=== PATIENT | male | born 1935 | race Caucasian/White ===

== ENCOUNTER 2021-06-11 09:46 | Inpatient (IN) | payer MEDICARE ==
[2021-06-11] MEDS ORDERED: SODIUM CHLORIDE 0.9% 1,000 ML IV STA (10:20)
--- NOTE | 2021-06-11 10:46 | ED ---
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 Patient had small skin cancer removal on the left side of his bottom lip yesterday. He states he did not eat a whole lot yesterday secondary to this. He woke up this morning, ring some coffee and was having some bread when he became nauseous, he stood up and started going to the bathroom when he felt dizzy, fell towards his left side. He did hit the door sill as well as a small glass cabinet on the floor. He denies any loss of consciousness. He denies being on blood thinners. He states he did have some neck pain after the fall but states that feeling better now. He denies any pain as his lower extrem ities, no abdominal pain, no chest pain or shortness of breath. He does not feel dizzy at this time. He denies any chest pain or shortness of breath at this time. He does have some mild skin tears to the left forearm and left hand. He also has some abrasions to his face. He does have some mild nasal pain. Patient denies any further complaints at this time. Upon arrival to the ER, his blood pressure slightly low at 85/67, rest of vitals within normal limits. - Related Data Home Medications Medication Instructions Recorded Confirmed Cephalexin [Keflex] 500 mg PO QID 06/11/21 06/11/21 Donepezil [Aricept] 5 mg PO HS 06/11/21 06/11/21 Furosemide [Lasix] 20 mg PO DAILY 06/11/21 06/11/21 HYDROcodone/APAP 7.5-325MG [[place] 1 tab PO DAILY PRN 06/11/21 06/11/21 7.5-325] Lisinopril-Hctz 20-25 mg 1 tab PO BID 06/11/21 06/11/21 [Zestoretic 20-25] Omeprazole 40 mg PO DAILY 06/11/21 06/11/21 Repaglinide [Prandin] 1 mg PO BID 06/11/21 06/11/21 Tamsulosin HCl [Flomax] 0.4 mg PO DAILY 06/11/21 06/11/21 Allergies Allergy/AdvReac Type Severity Reaction Status Date / Time No Known Allergies Allergy Verified 06/11/21 09:58 Review of Systems ROS Statement: Those systems with pertinent positive or pertinent negative responses have been documented in the HPI. ROS Other: All systems not noted in ROS Statement are negative. Past Medical History Past Medical History: Cancer, CVA/TIA, Diabetes Mellitus, Hypertension Additional Past Medical History / Comment(s): CVA in 2015 and 2019. occasional confusion per . skin cancer on left side of chin and small spot inside lip- removed 06/10/21 History of Any Multi-Drug Resistant Organisms: None Reported Additional Past Surgical History / Comment(s): skin cancer removal 06/11/21 Past Psychological History: No Psychological Hx Reported Smoking Status: Former smoker Past Alcohol Use History: Rare Past Drug Use History: None Reported General Exam - General Exam Comments Initial Comments: GENERAL: Patient is well-developed and well-nourished. Patient is nontoxic and in no acute distress. HEAD: Atraumatic, normocephalic. He has no hematomas, no signs of basal skull fracture. EYES: Pupils equal round and reactive to light, extraocular movements intact, sclera anicteric, conjunctiva are normal. Eyelids were unremarkable. ENT: TMs normal, nares patent, oropharynx clear without exudates. Moist mucous membranes. There is mild swelling and bruising noted to the nasal bridge, he does have a skin tear to the end of the nose. No active nasal bleeding. NECK: Normal range of motion, supple without lymphadenopathy or JVD. LUNGS: Unlabored respirations. Breath sounds clear to auscultation bilaterally and equal. No wheezes rales or rhonchi. HEART: Regular rate and rhythm without murmurs, rubs or gallops. ABDOMEN: Soft, nontender, normoactive bowel sounds. No guarding, no rebound. No masses appreciated. : Deferred MUSCULOSKELETAL: Normal extremities with adequate strength and normal range of motion, no pitting or edema. No clubbing or cyanosis. NEUROLOGICAL: Patient is alert and oriented x 3. Motor and sensory are also intact. Cranial nerves II through XII grossly intact. Symmetrical smile. Normal speech, normal gait. PSYCH: Normal mood, normal affect. SKIN: Warm, Dry, normal turgor, no rashes. Patient has a large 5x2 cm skin tear to the dorsal aspect of the left forearm, no active bleeding. He also has a very small skin tear, 1cm1cm to the dorsal aspect of the left hand again no active bleeding. Limitations: no limitations Course Vital Signs 06/11/21 06/11/21 06/11/21 09:49 10:33 11:49 Temperature 97.8 F Pulse Rate 92 94 89 Respiratory 18 18 18 Rate Blood Pressure 85/67 85/47 114/73 O2 Sat by Pulse 95 93 L 97 Oximetry 06/11/21 16:00 Temperature 97.7 F Pulse Rate 77 Respiratory 16 Rate Blood Pressure 116/61 O2 Sat by Pulse 97 Oximetry Medical Decision Making - Medical Decision Making She is an 85-year-old male with history of CVA with some mild left-sided weakness residual, diabetes, hypertension, presenting via EMS after a fall this morning. Patient got up to use the restroom, felt dizzy, fell towards the left side. He did not lose consciousness. His vitals are stable here except for some mild hypotension. He has no complaints. He has some small skin tears on the left forearm and on his nasal bridge. His EKG showing sinus rhythm with occ asional PVCs. Patient's labs showed a white count 11.2, creatinine is 3.16, BUN is 69 with GFR 17. Lactic acid is elevated at 5.4, troponin was within normal limits. Urine also has 20 WBCs, urine culture is pending. Patient states he doesn't history of kidney failure but does not know his current lab values. Given patient's elevated lactic acid and creatinine levels, we will admit him for acute kidney injury, dehydration, hypotension. Patient and patient's family is agreeable to this. I did discuss case with Dr. Merchant who is covering for Dr. Caceres, she is agreeable to admission. I will order kidney ultrasound and consult nephrology. Case discussed with Dr. Ontiveros. - Lab Data Result diagrams: 06/11/21 10:31 06/12/21 07:07 Lab Results 06/11/21 06/11/21 06/11/21 Range/Units 10:31 10:31 10:31 WBC 11.2 H (3.8-10.6) k/uL RBC 4.77 (4.30-5.90) m/uL Hgb 14.9 (13.0-17.5) gm/dL Hct 45.4 (39.0-53.0) % MCV 95.1 (80.0-100.0) fL MCH 31.2 (25.0-35.0) pg MCHC 32.8 (31.0-37.0) g/dL RDW 13.6 (11.5-15.5) % Plt Count 239 (150-450) k/uL MPV 8.8 Neutrophils % 75 % Lymphocytes % 15 % Monocytes % 4 % Eosinophils % 3 % Basophils % 1 % Neutrophils # 8.4 H (1.3-7.7) k/uL Lymphocytes # 1.7 (1.0-4.8) k/uL Monocytes # 0.5 (0-1.0) k/uL Eosinophils # 0.3 (0-0.7) k/uL Basophils # 0.1 (0-0.2) k/uL PT 11.5 (9.0-12.0) sec INR 1.1 (<1.2) APTT 21.9 L (22.0-30.0) sec Sodium 138 (137-145) mmol/L Potassium 4.3 (3.5-5.1) mmol/L Chloride 102 (98-107) mmol/L Carbon Dioxide 19 L (22-30) mmol/L Anion Gap 17 mmol/L BUN 69 H (9-20) mg/dL Creatinine 3.16 H (0.66-1.25) mg/dL Est GFR (CKD-EPI)AfAm 19 (>60 ml/min/1.73 sqM) Est GFR (CKD-EPI)NonAf 17 (>60 ml/min/1.73 sqM) Glucose 189 H (74-99) mg/dL Lactic Ac Sepsis Rflx Plasma Lactic Acid Jd (0.7-2.0) mmol/L Calcium 9.5 (8.4-10.2) mg/dL Magnesium 1.9 (1.6-2.3) mg/dL Total Bilirubin 0.9 (0.2-1.3) mg/dL AST 21 (17-59) U/L ALT 11 (4-49) U/L Alkaline Phosphatase 57 (38-126) U/L Troponin I (0.000-0.034) ng/mL Total Protein 7.1 (6.3-8.2) g/dL Albumin 3.6 (3.5-5.0) g/dL Urine Color Urine Appearance (Clear) Urine pH (5.0-8.0) Ur Specific [place] (1.001-1.035) Urine Protein (Negative) Urine Glucose (UA) (Negative) Urine Ketones (Negative) Urine Blood (Negative) Urine Nitrite (Negative) Urine Bilirubin (Negative) Urine Urobilinogen (<2.0) mg/dL Ur Leukocyte Esterase (Negative) Urine RBC (0-5) /hpf Urine WBC (0-5) /hpf Ur Squamous Epith Cells (0-4) /hpf Urine Mucus (None) /hpf Coronavirus (PCR) (Not Detectd) 06/11/21 06/11/21 06/11/21 Range/Units 10:31 10:31 12:09 WBC (3.8-10.6) k/uL RBC (4.30-5.90) m/uL Hgb (13.0-17.5) gm/dL Hct (39.0-53.0) % MCV (80.0-100.0) fL MCH (25.0-35.0) pg MCHC (31.0-37.0) g/dL RDW (11.5-15.5) % Plt Count (150-450) k/uL MPV Neutrophils % % Lymphocytes % % Monocytes % % Eosinophils % % Basophils % % Neutrophils # (1.3-7.7) k/uL Lymphocytes # (1.0-4.8) k/uL Monocytes # (0-1.0) k/uL Eosinophils # (0-0.7) k/uL Basophils # (0-0.2) k/uL PT (9.0-12.0) sec INR (<1.2) APTT (22.0-30.0) sec Sodium (137-145) mmol/L Potassium (3.5-5.1) mmol/L Chloride (98-107) mmol/L Carbon Dioxide (22-30) mmol/L Anion Gap mmol/L BUN (9-20) mg/dL Creatinine (0.66-1.25) mg/dL Est GFR (CKD-EPI)AfAm (>60 ml/min/1.73 sqM) Est GFR (CKD-EPI)NonAf (>60 ml/min/1.73 sqM) Glucose (74-99) mg/dL Lactic Ac Sepsis Rflx Plasma Lactic Acid Jd 5.4 H* (0.7-2.0) mmol/L Calcium (8.4-10.2) mg/dL Magnesium (1.6-2.3) mg/dL Total Bilirubin (0.2-1.3) mg/dL AST (17-59) U/L ALT (4-49) U/L Alkaline Phosphatase (38-126) U/L Troponin I 0.021 (0.000-0.034) ng/mL Total Protein (6.3-8.2) g/dL Albumin (3.5-5.0) g/dL Urine Color Yellow Urine Appearance Cloudy (Clear) Urine pH 5.0 (5.0-8.0) Ur Specific [place] 1.028 (1.001-1.035) Urine Protein 1+ H (Negative) Urine Glucose (UA) Negative (Negative) Urine Ketones Negative (Negative) Urine Blood Negative (Negative) Urine Nitrite Negative (Negative) Urine Bilirubin Negative (Negative) Urine Urobilinogen 4.0 (<2.0) mg/dL Ur Leukocyte Esterase Negative (Negative) Urine RBC 6 H (0-5) /hpf Urine WBC 20 H (0-5) /hpf Ur Squamous Epith Cells <1 (0-4) /hpf Urine Mucus Rare H (None) /hpf Coronavirus (PCR) (Not Detectd) 06/11/21 06/11/21 06/11/21 Range/Units 12:33 14:00 15:06 WBC (3.8-10.6) k/uL RBC (4.30-5.90) m/uL Hgb (13.0-17.5) gm/dL Hct (39.0-53.0) % MCV (80.0-100.0) fL MCH (25.0-35.0) pg MCHC (31.0-37.0) g/dL RDW (11.5-15.5) % Plt Count (150-450) k/uL MPV Neutrophils % % Lymphocytes % % Monocytes % % Eosinophils % % Basophils % % Neutrophils # (1.3-7.7) k/uL Lymphocytes # (1.0-4.8) k/uL Monocytes # (0-1.0) k/uL Eosinophils # (0-0.7) k/uL Basophils # (0-0.2) k/uL PT (9.0-12.0) sec INR (<1.2) APTT (22.0-30.0) sec Sodium (137-145) mmol/L Potassium (3.5-5.1) mmol/L Chloride (98-107) mmol/L Carbon Dioxide (22-30) mmol/L Anion Gap mmol/L BUN (9-20) mg/dL Creatinine (0.66-1.25) mg/dL Est GFR (CKD-EPI)AfAm (>60 ml/min/1.73 sqM) Est GFR (CKD-EPI)NonAf (>60 ml/min/1.73 sqM) Glucose (74-99) mg/dL Lactic Ac Sepsis Rflx Y Plasma Lactic Acid Jd 2.1 H* (0.7-2.0) mmol/L Calcium (8.4-10.2) mg/dL Magnesium (1.6-2.3) mg/dL Total Bilirubin (0.2-1.3) mg/dL AST (17-59) U/L ALT (4-49) U/L Alkaline Phosphatase (38-126) U/L Troponin I (0.000-0.034) ng/mL Total Protein (6.3-8.2) g/dL Albumin (3.5-5.0) g/dL Urine Color Urine Appearance (Clear) Urine pH (5.0-8.0) Ur Specific [place] (1.001-1.035) Urine Protein (Negative) Urine Glucose (UA) (Negative) Urine Ketones (Negative) Urine Blood (Negative) Urine Nitrite (Negative) Urine Bilirubin (Negative) Urine Urobilinogen (<2.0) mg/dL Ur Leukocyte Esterase (Negative) Urine RBC (0-5) /hpf Urine WBC (0-5) /hpf Ur Squamous Epith Cells (0-4) /hpf Urine Mucus (None) /hpf Coronavirus (PCR) Not Detected (Not Detectd) - EKG Data EKG Comments: Sinus rhythm with occasional PVCs, possible inferior infarct, age undetermined, no signs of acute ST segment elevation. Ventricular rate 95, TN interval 156, QT 366. No priors to compare. Disposition Clinical Impression: Fall, Hypotension, Kidney failure, Lactic acidosis, Dehydration Disposition: ADMITTED IP TO THIS HOSP Condition: Stable Decision Date: 06/11/21 Decision Time: 13:22
[2021-06-11 10:49] LABS: Basophils # (A) 0.1 k/uL (0-0.2); Basophils % (A) 1 %; Eosinophils # (A) 0.3 k/uL (0-0.7); Eosinophils % (A) 3 %; HCT 45.4 % (39.0-53.0); HGB 14.9 gm/dL (13.0-17.5); Lymphocytes # (A) 1.7 k/uL (1.0-4.8); Lymphocytes % (A) 15 %; MCH 31.2 pg (25.0-35.0); MCHC 32.8 g/dL (31.0-37.0); MCV 95.1 fL (80.0-100.0); Mean Platelet Volume 8.8; Monocytes # (A) 0.5 k/uL (0-1.0); Monocytes % (A) 4 %; Neutrophils # (A) 8.4 k/uL (1.3-7.7); Neutrophils % (A) 75 %; Platelet Count 239 k/uL (150-450); RBC 4.77 m/uL (4.30-5.90); RDW 13.6 % (11.5-15.5); WBC 11.2 k/uL (3.8-10.6)
[2021-06-11 11:06] LABS: INR 1.1 (<1.2); Prothrombin Time 11.5 sec (9.0-12.0)
[2021-06-11 11:17] LABS: Albumin 3.6 g/dL (3.5-5.0); Calcium 9.5 mg/dL (8.4-10.2); Magnesium 1.9 mg/dL (1.6-2.3); Potassium 4.3 mmol/L (3.5-5.1); Total Bilirubin 0.9 mg/dL (0.2-1.3); Total Protein 7.1 g/dL (6.3-8.2)
--- NOTE | 2021-06-11 11:23 | XR ---
EXAMINATION TYPE: XR chest 2V DATE OF EXAM: 06/11/2021 COMPARISON: NONE HISTORY: Shortness of breath TECHNIQUE: Frontal and lateral views of the chest are obtained. FINDINGS: Scattered senescent parenchymal changes noted. Hyperinflation compatible with COPD. No evidence for infiltrate. No evidence for atelectasis. Heart size is stable. Mediastinal structures are stable and grossly unremarkable. No evidence for hilar prominence. Degenerative changes dorsal spine. IMPRESSION: 1. No evidence for acute pulmonary disease.
[2021-06-11 11:27] LABS: Partial Thromboplastin Time 21.9 sec (22.0-30.0)
--- NOTE | 2021-06-11 11:28 | CT ---
EXAMINATION TYPE: CT brain chalino barrett DATE OF EXAM: 06/11/2021 COMPARISON: None HISTORY: fall, dizziness CT DLP: 1088.[address] of the brain was performed. The ventricles, basal cisterns and sulci overlying the cerebral convexities demonstrate mild to moder ate enlargement. There is no evidence for intracranial hemorrhage or sulcal effacement. There is decreased attenuatio n about the periventricular white matter and deep white matter of both cerebral hemispheres, compatib le with chronic small vessel ischemia. Areas of remote insult posterior left parietal region and rig ht frontal region. No mass effects are seen. If symptoms persist consider MRI. Right frontal bobo holes are noted. IMPRESSION: 1. Age related atrophic and chronic small vessel ischemic change without acute intracranial process seen at this time. CT Cervical Spine: Unenhanced CT of the cervical spine was performed with bone and soft tissue window settings submitted . Coronal and sagittal reconstruction is obtained. There is normal alignment and prevertebral soft tissues. No evidence for acute cervical fracture . Scattered degenerative disc disease and spondylosis. Biapical scarring. IMPRESSION: 1. No evidence for acute fracture or subluxation of the cervical spine.
--- NOTE | 2021-06-11 11:38 | CT ---
EXAMINATION TYPE: CT facial bones wo con DATE OF EXAM: 06/11/2021 COMPARISON: None HISTORY: fall, facial lacerations CT DLP: 788.[address] of the facial bones was performed in the axial and coronal planes. Bone and soft tissu e window settings are submitted. No significant soft tissue swelling is appreciated. I do not see evidence for displaced facial bone fracture or depressed facial bone fracture. The globes are intact. Paranasal sinuses are well-aerated. IMPRESSION: 1. No evidence for depressed or displaced facial bone fracture.
[2021-06-11 12:30] LABS: Appearance,Urine Cloudy (Clear); Bilirubin,Urine Negative (Negative); Blood,Urine Negative (Negative); Color,Urine Yellow; Glucose,Urine (UA) Negative (Negative); Ketones,Urine Negative (Negative); Leukocyte Esterase,Urine Negative (Negative); Mucus,Urine Rare /hpf; Nitrite,Urine Negative (Negative); Protein,Urine 1+ (Negative); RBC,Urine 6 /hpf (0-5); Specific Gravity,Urine 1.028 (1.001-1.035); Squamous Epithelial Cell,Urine <1 /hpf (0-4); WBC,Urine 20 /hpf (0-5)
[2021-06-11] MEDS ORDERED: NALOXONE 0.4 MG/ML 1 ML VIAL IV PRN (13:18)
[2021-06-11] MEDS ORDERED: cefTRIAXone IN SWFI 1,000 MG/10 ML SYRINGE IVP STA (13:21)
[2021-06-11] MEDS: SODIUM CHLORIDE 0.9% 1,000 ML IV SCH (13:56)
--- NOTE | 2021-06-11 13:57 | US ---
EXAMINATION TYPE: US renals and bladder DATE OF EXAM: 06/11/2021 COMPARISON: NONE CLINICAL HISTORY: kidney failure. EXAM MEASUREMENTS: Right Kidney: 9.0 x 4.4 x 4.5 cm Left Kidney: 9.2 x 4.7 x 5.4 cm Right Kidney: No hydronephrosis or masses seen Left Kidney: No hydronephrosis or masses seen Bladder: wnl There is no evidence for hydronephrosis at this point in time. No nephrolithiasis is seen. No graham s are identified. The urinary bladder is anechoic. Bilateral ureteral jets are seen. IMPRESSION: Examination is within normal limits.
[2021-06-11] MEDS: REPAGLINIDE 1 MG TAB PO SCH (21:11)
[2021-06-11] MEDS: DONEPEZIL 5 MG TAB PO SCH (21:18)
[2021-06-12] MEDS: SODIUM CHLORIDE 0.9% 1,000 ML IV SCH ×2 (05:18→08:40)
[2021-06-12 07:53] LABS: African American GFR (CKD) 28 (>60 ml/min/1.73 sqM); Anion Gap 9 mmol/L; Blood Urea Nitrogen 57 mg/dL (9-20); Calcium 8.9 mg/dL (8.4-10.2); Carbon Dioxide 21 mmol/L (22-30); Chloride 108 mmol/L (98-107); Glucose 140 mg/dL (74-99); Non-African American GFR(CKD) 24 (>60 ml/min/1.73 sqM); Potassium 4.4 mmol/L (3.5-5.1); Sodium 138 mmol/L (137-145)
[2021-06-12] MEDS: PANTOPRAZOLE 40 MG TABLET PO SCH (08:39)
[2021-06-12] MEDS: REPAGLINIDE 1 MG TAB PO SCH ×2 (08:39→21:07)
[2021-06-12] MEDS: TAMSULOSIN 0.4 MG CAP.ER.24H PO SCH (08:39)
[2021-06-12] MEDS: HYDROcodone/APAP 7.5-325MG 1 EACH TAB PO PRN (08:47)
[2021-06-12] MEDS: hydrALAZINE HCL 25 MG TAB PO SCH ×2 (09:59→21:17)
[2021-06-12 11:14] LABS: Glucose,Whole Blood 127 mg/dL (75-99)
--- NOTE | 2021-06-12 11:48 | P.HPIM ---
History of Present Illness H&P Date: 06/12/21 HISTORY OF PRESENT ILLNESS This is an 85-year-old male patient of Dr. Root with past medical history of CVA with residual mild left-sided weakness, hypertension, diabetes mellitus type 2, diabetic neuropathy, gastroesophageal reflux disease, scale or dementia, benign prostatic hypertrophy, chronic kidney disease, chronic low back pain, skin cancer removal from his lower lip on 2 separate days, 06/09 and 06/10. Patient did not eat much yesterday due to this. He woke up yesterday had some coffee and some bread and was feeling nauseated. He started going to the bathroom when he felt dizzy and fell towards his left side and hit the door frame and the glass cabinet. He denies loss of consciousness. No abdominal pain no chest pain. No shortness of breath patient was noted have skin tears to his left forearm and left hand and abrasions to his face. He is complaining of pain to his neck back and both knees. Patient presented to [facility] emergency center for evaluation and initial blood pressure was found below 85/67 with repeat at 114/73, pulse ox 97% on room air, afebrile, heart rate in the 80s and 90s. WBC 11.2, hemoglobin 14.9, platelet count 239. Sodium 138, potassium 4.3, chloride 102, CO2 19, BUN 69 and creatinine 3.16. Blood sugar 189. Liver function tests were normal. Lactic acid 5.4. Troponin 0.021. Urinalysis was cloudy with nitrate and leukoesterase negative, 20 WBCs. Virus not detected. EKG was a sinus rhythm with occasional PVCs no acute ST elevation. Patient was provided 1 L of IV fluid bolus and Rocephin IV. Chest x-ray showed no acute process. CAT scan of the brain and cervical spine revealed age-related atrophy and chronic small vessel ischemic change without acute intracranial process. No evidence of acute fracture or subluxation of the cervical spine. CAT scan of the face revealed no evidence of depressed or displaced facial bone fracture. Renal ultrasound revealed no acute findings, no hydronephrosis bilaterally. Patient admitted to the [facility] floor, lisinoprilhydrochlorothiazide and Lasix placed on hold, consult with nephrology. REVIEW OF SYSTEMS Constitutional: No fever, no chills, no night sweats. No weight change. Reports weakness, Reports fatigue no lethargy. No daytime sleepiness. EENT: No headache. No blurred vision or double vision, no loss of vision. No loss of Hearing, no ringing in the ears, no dizziness. No nasal drainage or congestion. No epistaxis. No sore throat. Lungs: No shortness of breath, cough, no sputum production. No wheezing. Cardiovascular: No chest pain, no lower extremity edema. No palpitations. No paroxysmal nocturnal dyspnea. No orthopnea. Reports lightheadedness or dizziness. No syncopal episodes. Abdominal: No abdominal pain. No nausea, vomiting. No diarrhea. No constipation. No bloody or tarry stools.. No loss of appetite. Genitourinary: No dysuria, increased frequency, urgency. No urinary retention. Musculoskeletal: No myalgias. No muscle weakness, no gait dysfunction,Reports falls. Reports back pain. Reports neck pain. Reports bilateral knee pain. Integumentary: No wounds, no lesions. No rash or pruritus. No unusual bruising. No change in hair or nails. Neurologic: No aphasia. No facial droop. No change in mentation. No head injury. No headache. No paralysis. No paresthesia. Psychiatric: No depression. No anxiety. No mood swings. Endocrine: No abnormal blood sugars. No weight change. No excessive sweating or thirst. No cold intolerance. SOCIAL HISTORY Patient was a smoker and quit 45 years ago. No marijuana use illicit drug use or alcohol use. Patient is a . FAMILY HISTORY Mother at age 95 from old age with history of heart problems. Father at age 64 from coronary artery disease. Patient has 2 brothers with history of coronary artery disease. Patient has one sister that has history of coronary artery disease. Patient is one son with history of myocardial infarction. PHYSICAL EXAMINATION Gen: This is an 85-year-old male. HEENT: Head is atraumatic, normocephalic. Pupils equal, round. Sclerae is anicteric. NECK: Supple. No JVD. No lymphadenopathy. No thyromegaly. LUNGS: Clear to auscultation. No wheezes or rhonchi. No intercostal retractions. HEART: Regular rate and rhythm. No murmur. ABDOMEN: Soft. Bowel sounds are present. No masses. No tenderness. EXTREMITIES: No pedal edema. No calf tenderness. Unable to palpate dorsalis pedis on the right side, foot is warm. Left dorsalis pedis 1+. NEUROLOGICAL: Patient is awake, alert and oriented x3. Cranial nerves 2 through 12 are grossly intact. ASSESSMENT AND PLAN 1. Acute kidney injury. Consult with nephrology, continue IV fluids 0.9 normal saline at 100 mL per hour, renal diet, repeat BMP, bladder scan post void residual. 2. Lactic acidosis secondary to acute kidney injury. Continue IV fluids. 3. Possible urinary tract infection. Continue Rocephin, await urine culture. 4. Skin cancer with resection on 06/09 and 06/10. 5. Dizziness with Fall with multiple abrasions, no acute fractures. Continue [place] for pain. PT, OT consults. Obtain orthostatic vital signs, continue site auditor. 6. Peripheral vascular disease right lower extremity. Unable to obtain pulses on the dorsalis pedis. Ultrasound arterial study. 7. Hypertension. Hold lisinopril hydrochlorothiazide and Lasix. Patient will be started on hydralazine 25 mg twice daily 8. History of CVA 2 in 2015 affecting his right side and 2001 affecting his left side. 9. Diabetes mellitus type 2. Resume Prandin 1 mg twice daily, start NovoLog scale before meals and at bedtime, A1c. 10. Vascular dementia. Continue Aricept 5 mg at bedtime 11. Gastroesophageal reflux disease and GI prophylaxis. Continue omeprazole 40 mg daily 12. Benign prostatic hypertrophy. Continue Flomax or 0.4 mg daily. 13. DVT prophylaxis. Heparin subcu 14. COVID-19 testing negative. Patient has been hospitalized during a pandemic. Patient will be admitted to the hospital for a minimum of 2 night stay. DISCHARGE PLAN To Be determined. PT and OT consults requested.. Impression and plan of care have been directed as dictated by the signing physic ian. Estela Smith nurse practitioner acting as scribe for signing physician. Past Medical History Past Medical History: Cancer, CVA/TIA, Diabetes Mellitus, Hypertension Additional Past Medical History / Comment(s): CVA in 2015 and 2019. occasional confusion per . skin cancer on left side of chin and small spot inside lip- removed 06/10/21 History of Any Multi-Drug Resistant Organisms: None Reported Additional Past Surgical History / Comment(s): skin cancer removal 06/11/21 Past Psychological History: No Psychological Hx Reported Smoking Status: Former smoker Past Alcohol Use History: Rare Past Drug Use History: None Reported Medications and Allergies Home Medications Medication Instructions Recorded Confirmed Type Cephalexin [Keflex] 500 mg PO QID 06/11/21 06/11/21 History Donepezil [Aricept] 5 mg PO HS 06/11/21 06/11/21 History Furosemide [Lasix] 20 mg PO DAILY 06/11/21 06/11/21 History HYDROcodone/APAP 7.5-325MG [[place] 1 tab PO DAILY PRN 06/11/21 06/11/21 History 7.5-325] Lisinopril-Hctz 20-25 mg 1 tab PO BID 06/11/21 06/11/21 History [Zestoretic 20-25] Omeprazole 40 mg PO DAILY 06/11/21 06/11/21 History Repaglinide [Prandin] 1 mg PO BID 06/11/21 06/11/21 History Tamsulosin HCl [Flomax] 0.4 mg PO DAILY 06/11/21 06/11/21 History Allergies Allergy/AdvReac Type Severity Reaction Status Date / Time No Known Allergies Allergy Verified 06/11/21 09:58 Physical Exam Vitals: Vital Signs Temp Pulse Pulse Resp BP BP Pulse Ox 06/12/21 06:55 98.9 F 95 17 157/71 97 06/12/21 02:00 98.3 F 86 16 132/78 96 06/11/21 19:30 98.3 F 79 17 106/63 97 06/11/21 16:00 97.7 F 77 16 116/61 97 06/11/21 11:49 89 18 114/73 97 06/11/21 10:33 94 18 85/47 93 L 06/11/21 09:49 97.8 F 92 18 85/67 95 Intake and Output 06/11/21 06/12/21 06/12/21 22:59 06:59 14:59 Output Total 500 Balance -500 Output: Urine 500 Other: Weight 77.111 kg Results CBC & Chem 7: 06/11/21 10:31 06/12/21 07:07 Labs: Abnormal Lab Results - Last 24 Hours (Table) 06/11/21 06/11/21 06/11/21 Range/Units 10:31 10:31 10:31 WBC 11.2 H (3.8-10.6) k/uL Neutrophils # 8.4 H (1.3-7.7) k/uL APTT 21.9 L (22.0-30.0) sec Carbon Dioxide 19 L (22-30) mmol/L BUN 69 H (9-20) mg/dL Creatinine 3.16 H (0.66-1.25) mg/dL Glucose 189 H (74-99) mg/dL Plasma Lactic Acid Jd (0.7-2.0) mmol/L Urine Protein (Negative) Urine RBC (0-5) /hpf Urine WBC (0-5) /hpf Urine Mucus (None) /hpf 06/11/21 06/11/21 06/11/21 Range/Units 10:31 12:09 15:06 WBC (3.8-10.6) k/uL Neutrophils # (1.3-7.7) k/uL APTT (22.0-30.0) sec Carbon Dioxide (22-30) mmol/L BUN (9-20) mg/dL Creatinine (0.66-1.25) mg/dL Glucose (74-99) mg/dL Plasma Lactic Acid Jd 5.4 H* 2.1 H* (0.7-2.0) mmol/L Urine Protein 1+ H (Negative) Urine RBC 6 H (0-5) /hpf Urine WBC 20 H (0-5) /hpf Urine Mucus Rare H (None) /hpf 06/11/21 Range/Units 18:10 WBC (3.8-10.6) k/uL Neutrophils # (1.3-7.7) k/uL APTT (22.0-30.0) sec Carbon Dioxide (22-30) mmol/L BUN (9-20) mg/dL Creatinine (0.66-1.25) mg/dL Glucose (74-99) mg/dL Plasma Lactic Acid Jd 3.0 H* (0.7-2.0) mmol/L Urine Protein (Negative) Urine RBC (0-5) /hpf Urine WBC (0-5) /hpf Urine Mucus (None) /hpf Microbiology - Last 24 Hours (Table) 06/11/21 12:09 Urine Culture - Preliminary Urine,Clean Catch Thrombosis Risk Factor Assmnt - Choose All That Apply Any of the Below Risk Factors Present?: No Each Risk Factor Represents 3 Points: Age 75 years or older Other congenital or acquired thrombophilia - If yes, enter type in comment: No Thrombosis Risk Factor Assessment Total Risk Factor Score: 3 Thrombosis Risk Factor Assessment Level: Moderate Risk
--- NOTE | 2021-06-12 12:31 | P.NPCON ---
History of Present Illness - Reason for Consult acute renal failure - History of Present Illness Reason for consultation: Acute kidney injury History of present illness: The patient's 85-year-old male seen in renal consultation for acute kidney injury. Creatinine on admission was 3.16 and is down to 2.34 today. Patient presented to the hospital after he sustained a fall while going to the bathroom at home. Patient states he recently underwent skin cancer removal a dermatology office earlier this week. Patient states he woke up in the morning and was walking to the bathroom and felt dizzy. He is unsure if he lost consciousness or not. Unknown as to what his baseline renal function is. Blood pressure was low in the systolic 80s and is now up to 162/70. He is receiving IV fluids. No vomiting or diarrhea. No hematuria or dysuria. He was taking lisinopril as well as hydrochlorothiazide at home which is currently held. He was also on Lasix at home which is held. He does admit to taking Motrin once to twice every daily for arthritis. Denies family history of renal disease. Vital signs are stable. General: The patient appeared well nourished and normally developed. HEENT: Head exam is unremarkable. LUNGS: Breath sounds decreased. HEART: Rate and Rhythm are regular. ABDOMEN: Soft, no distention. EXTREMITITES: No edema. Past Medical History Past Medical History: Cancer, CVA/TIA, Diabetes Mellitus, Hypertension Additional Past Medical History / Comment(s): CVA in 2015 and 2019. occasional confusion per . skin cancer on left side of chin and small spot inside lip- removed 06/10/21 History of Any Multi-Drug Resistant Organisms: None Reported Additional Past Surgical History / Comment(s): skin cancer removal 06/11/21 Past Psychological History: No Psychological Hx Reported Smoking Status: Former smoker Past Alcohol Use History: Rare Past Drug Use History: None Reported Medications and Allergies Home Medications Medication Instructions Recorded Confirmed Type Cephalexin [Keflex] 500 mg PO QID 06/11/21 06/11/21 History Donepezil [Aricept] 5 mg PO HS 06/11/21 06/11/21 History Furosemide [Lasix] 20 mg PO DAILY 06/11/21 06/11/21 History HYDROcodone/APAP 7.5-325MG [[place] 1 tab PO DAILY PRN 06/11/21 06/11/21 History 7.5-325] Lisinopril-Hctz 20-25 mg 1 tab PO BID 06/11/21 06/11/21 History [Zestoretic 20-25] Omeprazole 40 mg PO DAILY 06/11/21 06/11/21 History Repaglinide [Prandin] 1 mg PO BID 06/11/21 06/11/21 History Tamsulosin HCl [Flomax] 0.4 mg PO DAILY 06/11/21 06/11/21 History Allergies Allergy/AdvReac Type Severity Reaction Status Date / Time No Known Allergies Allergy Verified 06/11/21 09:58 Physical Exam Vitals: Vital Signs Temp Pulse Pulse Resp BP BP Pulse Ox 06/12/21 09:20 162/70 06/12/21 09:17 165/70 06/12/21 09:15 179/60 06/12/21 06:55 98.9 F 95 17 157/71 97 06/12/21 02:00 98.3 F 86 16 132/78 96 06/11/21 19:30 98.3 F 79 17 106/63 97 06/11/21 16:00 97.7 F 77 16 116/61 97 Intake and Output 06/11/21 06/12/21 06/12/21 22:59 06:59 14:59 Output Total 500 Balance -500 Output: Urine 500 Other: Weight 77.111 kg Results - Lab Results Most recent lab results Calcium 8.9 mg/dL (8.4-10.2) 06/12/21 07:07 Magnesium 1.9 mg/dL (1.6-2.3) 06/11/21 10:31 06/11/21 10:31 06/12/21 07:07 Assessment and Plan Plan: Assessment: 1. Acute kidney injury mostly prerenal secondary to hypotension and hypovolemia improving with IV hydration. Creatinine was 3.16 on admission and is down to 2.34 today. Unknown baseline renal function. No evidence of hydronephrosis noted on kidney ultrasound. UA shows 1+ proteinuria. 2. Metabolic acidosis secondary to acute kidney injury and IV fluids. 3. Status post fall. 4. Pyuria maintained on antibiotics. 5. Benign hypertension. 6. Diabetes mellitus. Plan: Decrease normal saline to 75 mL an hour. Continue to hold lisinopril and diuretics. Encouraged oral intake. Avoid nephrotoxins. Check orthostatic vital signs. Follow-up urine culture. Patient does have proteinuria on UA which is likely secondary to underlying diabetic kidney disease. Further workup outpatient. Thank you for the consultation. I will continue to follow the patient with you during his hospital stay
[2021-06-12] MEDS: INSULIN ASPART (NovoLOG) 100 UNIT/ML VIAL SQ SCH ×3 (13:03→21:07)
[2021-06-12 16:36] LABS: Glucose,Whole Blood 125 mg/dL (75-99)
[2021-06-12] MEDS: ACETAMINOPHEN TAB 325 MG TAB PO PRN (16:38)
[2021-06-12 20:46] LABS: Glucose,Whole Blood 130 mg/dL (75-99)
[2021-06-12] MEDS: DONEPEZIL 5 MG TAB PO SCH (21:17)
[2021-06-12] MEDS: HEPARIN SODIUM,PORCINE/PF 5,000 UNIT/0.5 ML SYRINGE SQ SCH (21:17)
[2021-06-13 07:28] LABS: Glucose,Whole Blood 133 mg/dL (75-99)
[2021-06-13] MEDS: INSULIN ASPART (NovoLOG) 100 UNIT/ML VIAL SQ SCH ×4 (08:33→21:47)
[2021-06-13 08:57] LABS: African American GFR (CKD) 46 (>60 ml/min/1.73 sqM); Anion Gap 10 mmol/L; Blood Urea Nitrogen 37 mg/dL (9-20); Calcium 9.3 mg/dL (8.4-10.2); Carbon Dioxide 20 mmol/L (22-30); Chloride 109 mmol/L (98-107); Glucose 149 mg/dL (74-99); Magnesium 1.6 mg/dL (1.6-2.3); Non-African American GFR(CKD) 40 (>60 ml/min/1.73 sqM); Potassium 4.2 mmol/L (3.5-5.1); Sodium 139 mmol/L (137-145)
--- NOTE | 2021-06-13 09:43 | P.PN ---
Subjective Patient is seen in follow for acute kidney injury. Renal function improving. Good urine output. No vomiting or diarrhea. Oral intake is good. Vital signs are stable. General: The patient appeared well nourished and normally developed. HEENT: Head exam is unremarkable. Neck is without jugular venous distension. LUNGS: Breath sounds decreased. HEART: Rate and Rhythm are regular. ABDOMEN: Soft, no distention. EXTREMITITES: No edema. Objective - Vital Signs Vital signs: Vital Signs Temp 98.2 F 06/13/21 08:00 Pulse 94 06/13/21 08:00 Resp 18 06/13/21 08:00 BP 174/84 06/13/21 08:00 Pulse Ox 98 06/13/21 08:00 Intake & Output 06/12/21 06/13/21 06/13/21 18:59 06:59 18:59 Other: # Voids 2 4 # Bowel Movements 1 - Labs CBC & Chem 7: 06/11/21 10:31 06/13/21 07:59 Labs: Abnormal Lab Results - Last 24 Hours (Table) 06/12/21 06/12/21 06/12/21 Range/Units 11:12 16:33 20:45 Chloride (98-107) mmol/L Carbon Dioxide (22-30) mmol/L BUN (9-20) mg/dL Creatinine (0.66-1.25) mg/dL Glucose (74-99) mg/dL POC Glucose (mg/dL) 127 H 125 H 130 H (75-99) mg/dL 06/13/21 06/13/21 Range/Units 07:08 07:59 Chloride 109 H (98-107) mmol/L Carbon Dioxide 20 L (22-30) mmol/L BUN 37 H (9-20) mg/dL Creatinine 1.55 H (0.66-1.25) mg/dL Glucose 149 H (74-99) mg/dL POC Glucose (mg/dL) 133 H (75-99) mg/dL Microbiology - Last 24 Hours (Table) 06/11/21 12:09 Urine Culture - Final Urine,Clean Catch Assessment and Plan Plan: Assessment: 1. Acute kidney injury mostly prerenal secondary to hypotension and hypovolemia improving with IV hydration. Creatinine was 3.16 on admission and is down to 1.55 today. Unknown baseline renal function. No evidence of hydronephrosis noted on kidney ultrasound. UA shows 1+ proteinuria. 2. Metabolic acidosis secondary to acute kidney injury and IV fluids. 3. Status post fall. 4. Pyuria maintained on antibiotics. 5. Benign hypertension. 6. Diabetes mellitus. Plan: Hep-Lock IV fluids. Continue to hold lisinopril and diuretics. Encouraged oral intake. Avoid nephrotoxins. Check orthostatic vital signs. Follow-up urine culture. Patient does have proteinuria on UA which is likely secondary to underlying diabetic kidney disease. Further workup outpatient.
[2021-06-13] MEDS: SODIUM CHLORIDE 0.9% 1,000 ML IV SCH (10:25)
[2021-06-13] MEDS: REPAGLINIDE 1 MG TAB PO SCH ×2 (11:19→21:47)
[2021-06-13] MEDS: HEPARIN SODIUM,PORCINE/PF 5,000 UNIT/0.5 ML SYRINGE SQ SCH ×2 (11:20→21:46)
[2021-06-13] MEDS: MAGNESIUM SULFATE-D5W PMX 1 GM in DEXTROSE/WATER 1 100ML.BAG IVPB SCH ×2 (11:20→13:10)
[2021-06-13] MEDS: TAMSULOSIN 0.4 MG CAP.ER.24H PO SCH (11:20)
[2021-06-13] MEDS: hydrALAZINE HCL 25 MG TAB PO SCH ×3 (11:20→21:47)
[2021-06-13] MEDS: PANTOPRAZOLE 40 MG TABLET PO SCH (11:20)
--- NOTE | 2021-06-13 11:30 | P.PN ---
Subjective Progress Note Date: 06/13/21 HISTORY OF PRESENT ILLNESS This is an 85-year-old male patient of Dr. Root with past medical history of CVA with residual mild left-sided weakness, hypertension, diabetes mellitus type 2, diabetic neuropathy, gastroesophageal reflux disease, scale or dementia, benign prostatic hypertrophy, chronic kidney disease, chronic low back pain, skin cancer removal from his lower lip on 2 separate days, 06/09 and 06/10. Patient did not eat much yesterday due to this. He woke up yesterday had some coffee and some bread and was feeling nauseated. He started going to the bathroom when he felt dizzy and fell towards his left side and hit the door frame and the glass cabinet. He denies loss of consciousness. No abdominal pain no chest pain. No shortness of breath patient was noted have skin tears to his left forearm and left hand and abrasions to his face. He is complaining of pain to his neck back and both knees. Patient presented to [facility] emergency center for evaluation and initial blood pressure was found below 85/67 with repeat at 114/73, pulse ox 97% on room air, afebrile, heart rate in the 80s and 90s. WBC 11.2, hemoglobin 14.9, platelet count 239. Sodium 138, potassium 4.3, chloride 102, CO2 19, BUN 69 and creatinine 3.16. Blood sugar 189. Liver function tests were normal. Lactic acid 5.4. Troponin 0.021. Urinalysis was cloudy with nitrate and leukoesterase negative, 20 WBCs. Virus not detected. EKG was a sinus rhythm with occasional PVCs no acute ST elevation. Patient was provided 1 L of IV fluid bolus and Rocephin IV. Chest x-ray showed no acute process. CAT scan of the brain and cervical spine revealed age-related atrophy and chronic small vessel ischemic change without acute intracranial process. No evidence of acute fracture or subluxation of the cervical spine. CAT scan of the face revealed no evidence of depressed or displaced facial bone fracture. Renal ultrasound revealed no acute findings, no hydronephrosis bilaterally. Patient admitted to the [facility] floor, lisinoprilhydrochlorothiazide and Lasix placed on hold, consult with nephrology. 06/13: Patient has been seen by nephrology with recommendations to Hep-Lock IVs, continue to hold lisinopril and diuretics, encourage oral intake, avoid nephrotoxins, orthostatics. Further workup for diabetic kidney disease as an outpatient. Patient has had good urine output. No vomiting or diarrhea. Urine culture is no growth at 18 hours. Repeat blood work reveals sodium 139, potassium 4.2, chloride 109, CO2 20, BUN 37 creatinine 1.55. Blood sugars runni ng between 125 and 149. Magnesium 1.[address] Davis. youth nutritional monitor has been a sinus rhythm. Antibiotics will be discontinued, patient had no complaints of dysuria. He states he wants to walk in the hallway today. REVIEW OF SYSTEMS Constitutional: No fever, no chills, no night sweats. No weight change. Denies weakness, denies fatigue no lethargy. No daytime sleepiness. EENT: No headache. No blurred vision or double vision, no loss of vision. No loss of Hearing, no ringing in the ears, no dizziness. No nasal drainage or congestion. No epistaxis. No sore throat. Lungs: No shortness of breath, cough, no sputum production. No wheezing. Cardiovascular: No chest pain, no lower extremity edema. No palpitations. No paroxysmal nocturnal dyspnea. No orthopnea. Reports lightheadedness or dizziness. No syncopal episodes. Abdominal: No abdominal pain. No nausea, vomiting. No diarrhea. No constipation. No bloody or tarry stools.. No loss of appetite. Genitourinary: No dysuria, increased frequency, urgency. No urinary retention. Musculoskeletal: No myalgias. No muscle weakness, no gait dysfunction,Reports falls. Reports back pain. Reports neck pain. Reports bilateral knee pain. Integumentary: No wounds, no lesions. No rash or pruritus. No unusual bruising. No change in hair or nails. Neurologic: No aphasia. No facial droop. No change in mentation. No head injury. No headache. No paralysis. No paresthesia. Psychiatric: No depression. No anxiety. No mood swings. Endocrine: No abnormal blood sugars. No weight change. No excessive sweating or thirst. No cold intolerance. PHYSICAL EXAMINATION Gen: This is an 85-year-old male. She is resting in bed and appears to be comfortable and in no acute distress. HEENT: Head is atraumatic, normocephalic. Pupils equal, round. Sclerae is anicteric. NECK: Supple. No JVD. No lymphadenopathy. No thyromegaly. LUNGS: Clear to auscultation. No wheezes or rhonchi. No intercostal retractions. HEART: Regular rate and rhythm. No murmur. ABDOMEN: Soft. Bowel sounds are present. No masses. No tenderness. EXTREMITIES: No pedal edema. No calf tenderness. Unable to palpate dorsalis pedis on the right side, foot is warm. Left dorsalis pedis 1+. NEUROLOGICAL: Patient is awake, alert and oriented x3. Cranial nerves 2 through 12 are grossly intact. ASSESSMENT AND PLAN 1. Acute kidney injury. Consult with nephrology, continue IV fluids 0.9 normal saline at 100 mL per hour, renal diet, repeat BMP, bladder scan post void residual. 2. Lactic acidosis secondary to acute kidney injury. Continue IV fluids. 3. Possible urinary tract infection. Continue Rocephin, await urine culture. 4. Skin cancer with resection on 06/09 and 06/10. 5. Dizziness with Fall with multiple abrasions, no acute fractures. Continue [place] for pain. PT, OT consults. Obtain orthostatic vital signs, continue engine monitor. 6. Peripheral vascular disease right lower extremity. Unable to obtain pulses on the dorsalis pedis. Ultrasound arterial study. 7. Hypertension. Hold lisinopril hydrochlorothiazide and Lasix. Patient will be started on hydralazine 25 mg twice daily 8. History of CVA 2 in 2015 affecting his right side and 2001 affecting his left side. 9. Diabetes mellitus type 2. Resume Prandin 1 mg twice daily, start NovoLog scale before meals and at bedtime, A1c. 10. Vascular dementia. Continue Aricept 5 mg at bedtime 11. Gastroesophageal reflux disease and GI prophylaxis. Continue omeprazole 40 mg daily 12. Benign prostatic hypertrophy. Continue Flomax or 0.4 mg daily. 13. DVT prophylaxis. Heparin subcu 14. COVID-19 testing negative. Patient has been hospitalized during a pandemic. DISCHARGE PLAN Home with [facility][note 3]. PT and OT consults requested. Impression and plan of care have been directed as dictated by the signing physician. Estela Smith nurse practitioner acting as scribe for signing physician. Objective - Vital Signs Vital signs: Vital Signs Temp 98.2 F 06/13/21 08:00 Pulse 94 10/02/21 08:00 Resp 18 06/13/21 08:00 BP 174/84 06/13/21 08:00 Pulse Ox 98 06/13/21 08:00 Intake & Output 06/12/21 06/13/21 06/13/21 18:59 06:59 18:59 Other: Voiding Method Urinal # Voids 2 4 # Bowel Movements 1 - Labs CBC & Chem 7: 06/11/21 10:31 06/13/21 07:59 Labs: Abnormal Lab Results - Last 24 Hours (Table) 06/12/21 06/12/21 06/12/21 Range/Units 11:12 16:33 20:45 Chloride (98-107) mmol/L Carbon Dioxide (22-30) mmol/L BUN (9-20) mg/dL Creatinine (0.66-1.25) mg/dL Glucose (74-99) mg/dL POC Glucose (mg/dL) 127 H 125 H 130 H (75-99) mg/dL 06/13/21 06/13/21 Range/Units 07:08 07:59 Chloride 109 H (98-107) mmol/L Carbon Dioxide 20 L (22-30) mmol/L BUN 37 H (9-20) mg/dL Creatinine 1.55 H (0.66-1.25) mg/dL Glucose 149 H (74-99) mg/dL POC Glucose (mg/dL) 133 H (75-99) mg/dL Microbiology - Last 24 Hours (Table) 06/11/21 12:09 Urine Culture - Final Urine,Clean Catch
--- NOTE | 2021-06-13 11:33 | P.DS ---
Providers Date of admission: 06/11/21 15:30 Expected date of discharge: 06/17/21 Attending physician: Ofelia Merchant Consults: 06/11/21 13:19 Consult Physician Urgent Consulting Provider: Carlee Hendrix Consult Reason/Comments: Kidney failure Do you want consulting provider notified?: Yes Primary care physician: [facility] Course: HISTORY OF PRESENT ILLNESS This is an 85-year-old male patient of Dr. Root with past medical history of CVA with residual mild left-sided weakness, hypertension, diabetes mellitus type 2, diabetic neuropathy, gastroesophageal reflux disease, scale or dementia, benign prostatic hypertrophy, chronic kidney disease, chronic low back pain, skin cancer removal from his lower lip on 2 separate days, 06/09 and 06/10. Dima goss did not eat much yesterday due to this. He woke up yesterday had some coffee and some bread and was feeling nauseated. He started going to the bathroom when he felt dizzy and fell towards his left side and hit the door frame and the glass cabinet. He denies loss of consciousness. No abdominal pain no chest pain. No shortness of breath patient was noted have skin tears to his left forearm and left hand and abrasions to his face. He is complaining of pain to his neck back and both knees. Patient presented to [facility] emergency center for evaluation and initial blood pressure was found below 85/67 with repeat at 114/73, pulse ox 97% on room air, afebrile, heart rate in the 80s and 90s. WBC 11.2, hemoglobin 14.9, platelet count 239. Sodium 138, potassium 4.3, chloride 102, CO2 19, BUN 69 and creatinine 3.16. Blood sugar 189. Liver function tests were normal. Lactic acid 5.4. Troponin 0.021. Urinalysis was cloudy with nitrate and leukoesterase negative, 20 WBCs. Virus not detected. EKG was a sinus rhythm with occasional PVCs no acute ST elevation. Patient was provided 1 L of IV fluid bolus and Rocephin IV. Chest x-ray showed no acute process. CAT scan of the brain and cervical spine revealed age-related atrophy and chronic small vessel ischemic change without acute intracranial process. No evidence of acute fracture or subluxation of the cervical spine. CAT scan of the face revealed no evidence of depressed or displaced facial bone fracture. Renal ultrasound revealed no acute findings, no hydronephrosis bilaterally. Patient admitted to the [facility] floor, lisinoprilhydrochlorothiazide and Lasix placed on hold, consult with nephrology. 06/13: Patient has been seen by nephrology with recommendations to Hep-Lock IVs, continue to hold lisinopril and diuretics, encourage oral intake, avoid nephrotoxins, orthostatics. Further workup for diabetic kidney disease as an outpatient. Patient has had good urine output. No vomiting or diarrhea. Urine culture is no growth at 18 hours. Repeat blood work reveals sodium 139, potassium 4.2, chloride 109, CO2 20, BUN 37 creatinine 1.55. Blood sugars running between 125 and 149. Magnesium 1.[address] Davis. surveillance monitor has been a sinus rhythm. Antibiotics will be discontinued, patient had no complaints of dysuria. He states he wants to walk in the hallway today. 06/14: Patient was prepared for discharge yesterday but required 2 person to get out of bed. Patient states that he ambulated well with walker. No PT/OT available this weekend and discharge was held until patient has full evaluation and may need subacute rehab. Patient did have a run of 8 beats of V. tach and magnesium will be replaced, recheck electrolytes. Incentive spirometry has been added as patient had temperature max 100.1. Patient has large skin tear on the left forearm but no sign of infection. Wound care consult added. 06/15: She had another run of 9 beats of V. tach and cardiology consult has been added. Patient is denying any shortness of breath. Incentive spirometry to be started although ordered yesterday. PT to work with the patient today regarding discharge planning and social work is following. Patient continues to complain of bilateral knee pain for which he appears to have some fluid, x-rays and orthopedic consult added. BUN 26 and creatinine 1.5, sodium 131. 06/16: Patient has been seen by orthopedics and aspiration done on both knees which was cloudy and sent for testing. Patient states he feels good but continues to have bilateral knee pain. He has been afebrile for greater than 24 hours. Patient did not have any ventricular tachycardia overnight. Echocardiogram was done which revealed EF of 60-65%. Etiology has now signed off. Patient is agreeable for subacute rehab and he is scheduled to go to [facility], we'll monitor overnight and plan for discharge tomorrow. 06/17: Fluid culture from patient's knees are still in progress, effusions consistent with crystalline arthropathy and orthopedics is planning for steroid injections prior to his discharge. Her two-year study has been completed. This was delayed due to supply issue. Patient has been afebrile since 06/15 at noon. No sign of pneumonia or UTI. Fever most likely related to atelectasis. Incentive spirometry to be encouraged. Antibiotics discontinued. Patient is scheduled for discharge to [facility]. Patient will be discharged today in stable condition. DISCHARGE DIAGNOSES 1. Acute kidney injury. 2. Lactic acidosis secondary to acute kidney injury. 3. Possible urinary tract infection ruled out. 4. Skin cancer with resection on 06/09 and 06/10. 5. Dizziness with Fall with multiple abrasions, no acute fractures. 6. Peripheral vascular disease right lower extremity. 7. Hypertension. 8. History of CVA 2 in 2015 affecting his right side and 2001 affecting his left side. 9. Diabetes mellitus type 2. 10. Vascular dementia. 11. Gastroesophageal reflux disease. 12. Benign prostatic hypertrophy. 13. 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 14. Fever secondary to atelectasis, no sign of sepsis. 15. COVID-19 testing negative. DISCHARGE PLAN [facility]. Impression and plan of care have been directed as dictated by the signing physician. Estela Smith nurse practitioner acting as scribe for signing physician. Patient Condition at Discharge: Good Plan - Discharge Summary Discharge Rx Participant: No New Discharge Prescriptions: New HYDROcodone/APAP 7.5-325MG [[place] 7.5-325] 1 each PO Q6HR PRN #12 tab PRN Reason: Pain hydrALAZINE HCL [Apresoline] 25 mg PO TID tab Metoprolol Succinate (ER) [Toprol XL] 12.5 mg PO DAILY tablet Continue Tamsulosin HCl [Flomax] 0.4 mg PO DAILY HYDROcodone/APAP 7.5-325MG [[place] 7.5-325] 1 tab PO DAILY PRN PRN Reason: Pain Omeprazole 40 mg PO DAILY Repaglinide [Prandin] 1 mg PO BID Furosemide [Lasix] 20 mg PO DAILY Donepezil [Aricept] 5 mg PO HS Discontinued Lisinopril-Hctz 20-25 mg [Zestoretic 20-25] 1 tab PO BID Cephalexin [Keflex] 500 mg PO QID Discharge Medication List Donepezil [Aricept] 5 mg PO HS 06/11/21 [History] Furosemide [Lasix] 20 mg PO DAILY 06/11/21 [History] HYDROcodone/APAP 7.5-325MG [[place] 7.5-325] 1 tab PO DAILY PRN 06/11/21 [History] Omeprazole 40 mg PO DAILY 06/11/21 [History] Repaglinide [Prandin] 1 mg PO BID 06/11/21 [History] Tamsulosin HCl [Flomax] 0.4 mg PO DAILY 06/11/21 [History] HYDROcodone/APAP 7.5-325MG [[place] 7.5-325] 1 each PO Q6HR PRN #12 tab 06/17/21 [Rx] Metoprolol Succinate (ER) [Toprol XL] 12.5 mg PO DAILY tablet 06/17/21 [Rx] hydrALAZINE HCL [Apresoline] 25 mg PO TID tab 06/17/21 [Rx] Follow up Appointment(s)/Referral(s): [facility], [NON-STAFF] - () Damein Michelle DO [STAFF PHYSICIAN] - 2 Weeks Moses Root MD [Primary Care Provider] - 1 Week [facility], [NON-STAFF] - As Needed Ambulatory/Diagnostic Orders: Basic Metabolic Panel [LAB.AMB] Location: None Selected Magnesium [LAB.AMB] Location: None Selected Discharge Disposition: HOME WITH HOME HEALTH SERVICES
[2021-06-13 11:51] LABS: HCT 36.1 % (39.6-50.0); HGB 11.9 g/dL (13.0-17.0); Mean Platelet Volume 11.6 fL (9.5-12.2); Platelet Count 138 X 10*3/uL (140-440); RBC 3.84 X 10*6/uL (4.40-5.60); RDW 12.6 % (11.5-14.5); WBC 7.76 X 10*3/uL (4.50-10.00)
[2021-06-13 12:14] LABS: Glucose,Whole Blood 148 mg/dL (75-99)
[2021-06-13 16:58] LABS: Glucose,Whole Blood 151 mg/dL (75-99)
[2021-06-13 20:38] LABS: Glucose,Whole Blood 129 mg/dL (75-99)
[2021-06-13] MEDS: DONEPEZIL 5 MG TAB PO SCH (21:47)
[2021-06-14] MEDS: ACETAMINOPHEN TAB 325 MG TAB PO PRN ×2 (03:39→13:15)
[2021-06-14 07:02] LABS: Glucose,Whole Blood 137 mg/dL (75-99)
[2021-06-14] MEDS: HYDROcodone/APAP 7.5-325MG 1 EACH TAB PO PRN ×2 (07:21→18:02)
[2021-06-14] MEDS: PANTOPRAZOLE 40 MG TABLET PO SCH (07:21)
[2021-06-14] MEDS: REPAGLINIDE 1 MG TAB PO SCH ×2 (07:21→20:57)
[2021-06-14] MEDS: TAMSULOSIN 0.4 MG CAP.ER.24H PO SCH (07:21)
[2021-06-14] MEDS: INSULIN ASPART (NovoLOG) 100 UNIT/ML VIAL SQ SCH ×4 (07:22→20:57)
[2021-06-14] MEDS: HEPARIN SODIUM,PORCINE/PF 5,000 UNIT/0.5 ML SYRINGE SQ SCH ×2 (07:22→20:57)
[2021-06-14] MEDS: hydrALAZINE HCL 25 MG TAB PO SCH ×3 (07:30→20:57)
--- NOTE | 2021-06-14 10:19 | P.PN ---
Subjective Patient is seen in follow for acute kidney injury. Renal function improved. Good urine output. No vomiting or diarrhea. Oral intake is good. He modynamically stable. Did have fever overnight. Vital signs are stable. General: The patient appeared well nourished and normally developed. HEENT: Head exam is unremarkable. Neck is without jugular venous distension. LUNGS: Breath sounds decreased. HEART: Rate and Rhythm are regular. ABDOMEN: Soft, no distention. EXTREMITITES: No edema. Objective - Vital Signs Vital signs: Vital Signs Temp 99.7 F H 06/14/21 07:23 Pulse 89 06/14/21 07:23 Resp 18 06/14/21 07:23 BP 143/72 06/14/21 07:23 Pulse Ox 96 06/14/21 07:23 Intake & Output 06/13/21 06/14/21 06/14/21 18:59 06:59 18:59 Intake Total 900 Output Total 600 Balance 300 Intake: IV 900 Sodium Chloride 0.9% 1, 900 000 ml @ 75 mls/hr IV . [id number] [facility] Rx#:[id number] Output: Urine 600 Other: Voiding Method Urinal Urinal # Voids 2 3 # Bowel Movements 1 - Labs CBC & Chem 7: 06/13/21 07:59 06/13/21 07:59 Labs: Abnormal Lab Results - Last 24 Hours (Table) 06/13/21 06/13/21 06/13/21 Range/Units 07:59 12:03 16:54 RBC 3.84 L (4.40-5.60) X 10*6/uL Hgb 11.9 L (13.0-17.0) g/dL Hct 36.1 L (39.6-50.0) % Plt Count 138 L (140-440) X 10*3/uL POC Glucose (mg/dL) 148 H 151 H (75-99) mg/dL 06/13/21 06/14/21 Range/Units 20:37 06:50 RBC (4.40-5.60) X 10*6/uL Hgb (13.0-17.0) g/dL Hct (39.6-50.0) % Plt Count (140-440) X 10*3/uL POC Glucose (mg/dL) 129 H 137 H (75-99) mg/dL Assessment and Plan Plan: Assessment: 1. Acute kidney injury mostly prerenal secondary to hypotension and hypovolemia improving with IV hydration. Creatinine was 3.16 on admission and is down to 1.55 yesterday. Unknown baseline renal function. No evidence of hydronephrosis noted on kidney ultrasound. UA shows 1+ proteinuria. 2. Metabolic acidosis secondary to acute kidney injury and IV fluids. 3. Status post fall. 4. Pyuria maintained on antibiotics. 5. Benign hypertension. Stable. 6. Diabetes mellitus. Plan: Remains off IV fluids. Continue to hold lisinopril and diuretics. Encouraged oral intake. Avoid nephrotoxins. Monitor orthostatic vital signs. Follow-up urine culture. Patient does have proteinuria on UA which is likely secondary to underlying diabetic kidney disease. Further workup outpatient.
--- NOTE | 2021-06-14 10:30 | P.PN ---
Subjective Progress Note Date: 06/14/21 HISTORY OF PRESENT ILLNESS This is an 85-year-old male patient of Dr. Root with past medical history of CVA with residual mild left-sided weakness, hypertension, diabetes mellitus type 2, diabetic neuropathy, gastroesophageal reflux disease, scale or dementia, benign prostatic hypertrophy, chronic kidney disease, chronic low back pain, skin cancer removal from his lower lip on 2 separate days, 06/09 and 06/10. Patient did not eat much yesterday due to this. He woke up yesterday had some coffee and some bread and was feeling nauseated. He started going to the bathroom when he felt dizzy and fell towards his left side and hit the door frame and the glass cabinet. He denies loss of consciousness. No abdominal pain no chest pain. No shortness of breath patient was noted have skin tears to his left forearm and left hand and abrasions to his face. He is complaining of pain to his neck back and both knees. Patient presented to [facility] emergency center for evaluation and initial blood pressure was found below 85/67 with repeat at 114/73, pulse ox 97% on room air, afebrile, heart rate in the 80s and 90s. WBC 11.2, hemoglobin 14.9, platelet count 239. Sodium 138, potassium 4.3, chloride 102, CO2 19, BUN 69 and creatinine 3.16. Blood sugar 189. Liver function tests were normal. Lactic acid 5.4. Troponin 0.021. Urinalysis was cloudy with nitrate and leukoesterase negative, 20 WBCs. Virus not detected. EKG was a sinus rhythm with occasional PVCs no acute ST elevation. Patient was provided 1 L of IV fluid bolus and Rocephin IV. Chest x-ray showed no acute process. CAT scan of the brain and cervical spine revealed age-related atrophy and chronic small vessel ischemic change without acute intracranial process. No evidence of acute fracture or subluxation of the cervical spine. CAT scan of the face revealed no evidence of depressed or displaced facial bone fracture. Renal ultrasound revealed no acute findings, no hydronephrosis bilaterally. Patient admitted to the [facility] floor, lisinoprilhydrochlorothiazide and Lasix placed on hold, consult with nephrology. 06/13: Patient has been seen by nephrology with recommendations to Hep-Lock IVs, continue to hold lisinopril and diuretics, encourage oral intake, avoid nephrotoxins, orthostatics. Further workup for diabetic kidney disease as an outpatient. Patient has had good urine output. No vomiting or diarrhea. Urine culture is no growth at 18 hours. Repeat blood work reveals sodium 139, potassium 4.2, chloride 109, CO2 20, BUN 37 creatinine 1.55. Blood sugars runni ng between 125 and 149. Magnesium 1.[address] Davis. surveillance system monitor has been a sinus rhythm. Antibiotics will be discontinued, patient had no complaints of dysuria. He states he wants to walk in the hallway today. 06/14: Patient was prepared for discharge yesterday but required 2 person to get out of bed. Patient states that he ambulated well with walker. No PT/OT availa ble this weekend and discharge was held until patient has full evaluation and may need subacute rehab. Patient did have a run of 8 beats of V. tach and magnesium will be replaced, recheck electrolytes. Incentive spirometry has been added as patient had temperature max 100.1. Patient has large skin tear on the left forearm but no sign of infection. Wound care consult added. REVIEW OF SYSTEMS Constitutional: No fever, no chills, no night sweats. No weight change. Denies weakness, denies fatigue no lethargy. No daytime sleepiness. EENT: No headache. No blurred vision or double vision, no loss of vision. No loss of Hearing, no ringing in the ears, no dizziness. No nasal drainage or congestion. No epistaxis. No sore throat. Lungs: No shortness of breath, cough, no sputum production. No wheezing. Cardiovascular: No chest pain, no lower extremity edema. No palpitations. No paroxysmal nocturnal dyspnea. No orthopnea. Reports lightheadedness or dizzin ess. No syncopal episodes. Abdominal: No abdominal pain. No nausea, vomiting. No diarrhea. No co nstipation. No bloody or tarry stools.. No loss of appetite. Genitourinary: No dysuria, increased frequency, urgency. No urinary retention. Musculoskeletal: No myalgias. No muscle weakness, no gait dysfunction,Reports falls. Reports back pain. Reports neck pain. Reports bilateral knee pain. Integumentary: No wounds, no lesions. No rash or pruritus. No unusual bruising. No change in hair or nails. Neurologic: No aphasia. No facial droop. No change in mentation. No head injury. No headache. No paralysis. No paresthesia. Psychiatric: No depression. No anxiety. No mood swings. Endocrine: No abnormal blood sugars. No weight change. No excessive sweating or thirst. No cold intolerance. PHYSICAL EXAMINATION Gen: This is an 85-year-old male. She is resting in bed and appears to be comfortable and in no acute distress. HEENT: Head is atraumatic, normocephalic. Pupils equal, round. Sclerae is anicteric. NECK: Supple. No JVD. No lymphadenopathy. No thyromegaly. LUNGS: Clear to auscultation. No wheezes or rhonchi. No intercostal retractio ns. HEART: Regular rate and rhythm. No murmur. ABDOMEN: Soft. Bowel sounds are present. No masses. No tenderness. EXTREMITIES: No pedal edema. No calf tenderness. Unable to palpate dorsalis pedis on the right side, foot is warm. Left dorsalis pedis 1+. NEUROLOGICAL: Patient is awake, alert and oriented x3. Cranial nerves 2 through 12 are grossly intact. ASSESSMENT AND PLAN 1. Acute kidney injury. Consult with nephrology, continue IV fluids discontinued, renal diet, repeat BMP, bladder scan post void residual. 2. Lactic acidosis secondary to acute kidney injury. off IV fluids. 3. Possible urinary tract infection ruled out with negative urine culture. 4. Skin cancer with resection on 06/09 and 06/10. 5. Dizziness with Fall with multiple abrasions, no acute fractures. Continue [place] for pain. PT, OT consults. Obtain orthostatic vital signs, continue environmental monitoring technician. 6. Peripheral vascular disease right lower extremity. Unable to obtain pulses on the dorsalis pedis. Ultrasound arterial study. 7. Hypertension. Hold lisinopril hydrochlorothiazide and Lasix. Continue hydralazine 25 mg 3x daily 8. History of CVA 2 in 2016 affecting his right side and 2001 affecting his left side. 9. Diabetes mellitus type 2. Resume Prandin 1 mg twice daily, start NovoLog scale before meals and at bedtime, A1c. 10. Vascular dementia. Continue Aricept 5 mg at bedtime 11. Gastroesophageal reflux disease and GI prophylaxis. Continue omeprazole 40 mg daily 12. Benign prostatic hypertrophy. Continue Flomax or 0.4 mg daily. 13. DVT prophylaxis. Heparin subcu 14. COVID-19 testing negative. Patient has been hospitalized during a pandemic. DISCHARGE PLAN Home with [facility] PT and OT consults requested to be completed prior to discharge. Impression and plan of care have been directed as dictated by the signing physician. Estela Smith nurse practitioner acting as scribe for signing physician. Objective - Vital Signs Vital signs: Vital Signs Temp 99.7 F H 06/14/21 07:23 Pulse 89 06/14/21 07:23 Resp 18 06/14/21 07:23 BP 143/72 06/14/21 07:23 Pulse Ox 96 06/14/21 07:23 Intake & Output 06/13/21 06/14/21 06/14/21 18:59 06:59 18:59 Intake Total 900 Output Total 600 Balance 300 Intake: IV 900 Sodium Chloride 0.9% 1, 900 000 ml @ 75 mls/hr IV . [id number] [facility] Rx#:[id number] Output: Urine 600 Other: Voiding Method Urinal Urinal # Voids 2 3 # Bowel Movements 1 - Labs CBC & Chem 7: 06/13/21 07:59 06/13/21 07:59 Labs: Abnormal Lab Results - Last 24 Hours (Table) 06/13/21 06/13/21 06/13/21 Range/Units 07:59 12:03 16:54 RBC 3.84 L (4.40-5.60) X 10*6/uL Hgb 11.9 L (13.0-17.0) g/dL Hct 36.1 L (39.6-50.0) % Plt Count 138 L (140-440) X 10*3/uL POC Glucose (mg/dL) 148 H 151 H (75-99) mg/dL 06/13/21 06/14/21 Range/Units 20:37 06:50 RBC (4.40-5.60) X 10*6/uL Hgb (13.0-17.0) g/dL Hct (39.6-50.0) % Plt Count (140-440) X 10*3/uL POC Glucose (mg/dL) 129 H 137 H (75-99) mg/dL
[2021-06-14 10:47] LABS: African American GFR (CKD) 53 (>60 ml/min/1.73 sqM); Anion Gap 9 mmol/L; Blood Urea Nitrogen 28 mg/dL (9-20); Calcium 8.7 mg/dL (8.4-10.2); Carbon Dioxide 18 mmol/L (22-30); Chloride 108 mmol/L (98-107); Glucose 130 mg/dL (74-99); Non-African American GFR(CKD) 46 (>60 ml/min/1.73 sqM); Potassium 4.1 mmol/L (3.5-5.1); Sodium 135 mmol/L (137-145)
[2021-06-14 11:23] LABS: Glucose,Whole Blood 87 mg/dL (75-99)
[2021-06-14] MEDS: MAGNESIUM SULFATE-D5W PMX 1 GM in DEXTROSE/WATER 1 100ML.BAG IVPB SCH ×2 (13:16→14:35)
[2021-06-14 16:59] LABS: Glucose,Whole Blood 114 mg/dL (75-99)
--- NOTE | 2021-06-14 18:19 | XR ---
EXAMINATION TYPE: XR chest 1V portable DATE OF EXAM: 06/14/2021 COMPARISON: 06/11/2021 HISTORY: Weakness TECHNIQUE: Single view FINDINGS: Heart appears slightly enlarged. There is some blunting of the costophrenic angles. There i s mild pulmonary congestion. There is coarsening of interstitial markings. IMPRESSION: There is some new pleural reaction at the lung bases compared to old exam. There is incre ased interstitial markings. Minimal heart failure is possible.
[2021-06-14 20:45] LABS: Glucose,Whole Blood 110 mg/dL (75-99)
[2021-06-14] MEDS: DONEPEZIL 5 MG TAB PO SCH (20:57)
[2021-06-15 03:20] LABS: Appearance,Urine Cloudy (Clear); Bilirubin,Urine Negative (Negative); Blood,Urine Negative (Negative); Color,Urine Yellow; Glucose,Urine (UA) Negative (Negative); Ketones,Urine Negative (Negative); Leukocyte Esterase,Urine Moderate (Negative); Mucus,Urine Rare /hpf; Nitrite,Urine Negative (Negative); PH, Urine 5.5 (5.0-8.0); Protein,Urine 2+ (Negative); RBC,Urine <1 /hpf (0-5); Specific Gravity,Urine 1.016 (1.001-1.035); Squamous Epithelial Cell,Urine 1 /hpf (0-4); Urobilinogen,Urine <2.0 mg/dL (<2.0); WBC,Urine 2 /hpf (0-5)
[2021-06-15 06:46] LABS: Glucose,Whole Blood 118 mg/dL (75-99)
[2021-06-15] MEDS: INSULIN ASPART (NovoLOG) 100 UNIT/ML VIAL SQ SCH ×4 (07:09→21:42)
[2021-06-15] MEDS: hydrALAZINE HCL 25 MG TAB PO SCH ×3 (07:34→21:46)
[2021-06-15] MEDS: PANTOPRAZOLE 40 MG TABLET PO SCH (07:34)
[2021-06-15] MEDS: HEPARIN SODIUM,PORCINE/PF 5,000 UNIT/0.5 ML SYRINGE SQ SCH ×2 (07:35→21:46)
[2021-06-15] MEDS: REPAGLINIDE 1 MG TAB PO SCH ×2 (07:35→21:45)
[2021-06-15] MEDS: TAMSULOSIN 0.4 MG CAP.ER.24H PO SCH (07:35)
[2021-06-15] MEDS: ACETAMINOPHEN TAB 325 MG TAB PO PRN ×2 (07:35→13:10)
--- NOTE | 2021-06-15 08:43 | P.CONS ---
History of Present Illness - Reason for Consult Consult date: 06/15/21 wound care - History of Present Illness This is an 85-year-old patient being seen on 4 S. for nonhealing ulceration to the left forearm. Patient states that he had undergone a procedure that he was given anesthetic resulting in him being off balance. Patient ran into his [employer] cabinet resulting in a ulceration to the left forearm. The ulceration measures approximately 3 x 4 x 0.1 cm Limited to skin breakdown. There is granulation seen throughout the wound that wound edges are not attached to the wound base. Patient has unattached dermis. No tunneling or undermining noted to the site. Patient's past medical history significant for cancer, CVA, diabetes, hypertension. Review Of Systems: Constitutional: No fever, no chills, no night sweats. No weight change. No weakness, fatigue or lethargy. No daytime sleepiness. Integumentary:reports wounds, no lesions. No rash or pruritus. No unusual bruising. No change in hair or nails. Physical exam: General Appearance: Alert, cooperative, no distress, appears stated age. Skin: See HPI all other Skin color, texture, tugor normal, no rashes or lesions. Neurologic: Alert oriented x3 Assessment: 1. Nonhealing ulceration left upper extremity Limited to skin breakdown 2. Diabetes a skin ulcer Plan: 1.Apply triad, rolled gauze secured with paper tape. May apply Adaptic if the Kerlix is sticking to the triad. Change daily. May wash daily with soap and water. Thank you for the consultation any questions please contact the wound care center DNP note has been reviewed and discussed with Dr. Lubin and the impression and plan of care has been directed as dictated. Past Medical History Past Medical History: Cancer, CVA/TIA, Diabetes Mellitus, Hypertension Additional Past Medical History / Comment(s): CVA in 2016 and 2020. occasional confusion per . skin cancer on left side of chin and small spot inside lip- removed 06/10/21 History of Any Multi-Drug Resistant Organisms: None Reported Additional Past Surgical History / Comment(s): skin cancer removal 06/11/21 Past Psychological History: No Psychological Hx Reported Smoking Status: Former smoker Past Alcohol Use History: Rare Past Drug Use History: None Reported Medications and Allergies Home Medications Medication Instructions Recorded Confirmed Type Cephalexin [Keflex] 500 mg PO QID 06/11/21 06/11/21 History Donepezil [Aricept] 5 mg PO HS 06/11/21 06/11/21 History Furosemide [Lasix] 20 mg PO DAILY 06/11/21 06/11/21 History HYDROcodone/APAP 7.5-325MG [[place] 1 tab PO DAILY PRN 06/11/21 06/11/21 History 7.5-325] Lisinopril-Hctz 20-25 mg 1 tab PO BID 06/11/21 06/11/21 History [Zestoretic 20-25] Omeprazole 40 mg PO DAILY 06/11/21 06/11/21 History Repaglinide [Prandin] 1 mg PO BID 06/11/21 06/11/21 History Tamsulosin HCl [Flomax] 0.4 mg PO DAILY 06/11/21 06/11/21 History Allergies Allergy/AdvReac Type Severity Reaction Status Date / Time No Known Allergies Allergy Verified 06/11/21 09:58 Physical Exam Vitals: Vital Signs Temp Pulse Resp BP BP Pulse Ox 06/15/21 07:04 101.5 F H 108 H 18 174/73 95 06/15/21 02:27 98.1 F 68 17 126/68 96 06/14/21 19:50 98.5 F 89 18 160/72 94 L 06/14/21 16:11 99.9 F H 96 20 146/69 95 06/14/21 14:39 99.6 F 06/14/21 14:20 101.5 F H 06/14/21 13:14 101.2 F H Intake and Output 06/14/21 06/15/21 06/15/21 22:59 06:59 14:59 Other: Voiding Method Urinal # Voids 4 Results CBC & Chem 7: 06/13/21 07:59 06/14/21 09:35 Labs: Abnormal Lab Results - Last 24 Hours (Table) 06/14/21 06/14/21 06/14/21 Range/Units 09:35 16:57 20:43 Sodium 135 L (137-145) mmol/L Chloride 108 H (98-107) mmol/L Carbon Dioxide 18 L (22-30) mmol/L BUN 28 H (9-20) mg/dL Creatinine 1.37 H (0.66-1.25) mg/dL Glucose 130 H (74-99) mg/dL POC Glucose (mg/dL) 114 H 110 H (75-99) mg/dL Urine Protein (Negative) Ur Leukocyte Esterase (Negative) Urine Mucus (None) /hpf 06/15/21 06/15/21 Range/Units 02:30 06:44 Sodium (137-145) mmol/L Chloride (98-107) mmol/L Carbon Dioxide (22-30) mmol/L BUN (9-20) mg/dL Creatinine (0.66-1.25) mg/dL Glucose (74-99) mg/dL POC Glucose (mg/dL) 118 H (75-99) mg/dL Urine Protein 2+ H (Negative) Ur Leukocyte Esterase Moderate H (Negative) Urine Mucus Rare H (None) /hpf Assessment and Plan (1) Non-pressure chronic ulcer of skin of other sites limited to breakdown of skin Current Visit: Yes Status: Acute Code(s): L98.491 - NON-PRS CHRONIC ULCER SKIN/ SITES LIMITED TO BRKDWN SKIN SNOMED Code(s): 67078115 (2) Diabetes mellitus with skin ulcer Current Visit: Yes Status: Acute Code(s): E11.622 - TYPE 2 DIABETES MELLITUS WITH OTHER SKIN ULCER; L98.499 - NON-PRESSURE CHRONIC ULCER OF SKIN OF SITES W UNSP SEVERITY SNOMED Code(s): 19493427
[2021-06-15 11:14] LABS: Glucose,Whole Blood 69 mg/dL (75-99)
[2021-06-15 11:30] LABS: Glucose,Whole Blood 77 mg/dL (75-99)
[2021-06-15 11:40] LABS: African American GFR (CKD) 49.8 (60.0-200.0); Anion Gap 10.7 mmol/L (4.00-12.00); Blood Urea Nitrogen 26.1 mg/dL (9.0-27.0); Calcium 8.7 mg/dL (8.7-10.3); Carbon Dioxide 18.5 mmol/L (21.6-31.8); Potassium 4.2 mmol/L (3.5-5.5)
--- NOTE | 2021-06-15 12:18 | P.CRDCN ---
History of Present Illness History of present illness: HISTORY OF PRESENTING ILLNESS This is a pleasant 85-year-old with past medical history significant for hypertension, prior intracranial hemorrhage related to fall, chronic lower extremity edema improved on diuretics, skin cancer status post removal, chronic kidney disease, arthritis. Patient initially had procedure done for a skin cancer on his neck where he apparently was And monitored for 24 hours. He admits he was nothing by mouth and has not been eating or drinking much during that time and then was discharged Tuesday. On he then had an episode where he started feeling lightheaded and feeling his legs giving out and then fell. He denies having any fevers or chills however over the last 2 days has had multiple fevers. He denies any pain with urination however was found to have mild white blood cell count in his urine. His diuretics were stopped and initially his BUN was 69, creatinine 3.16, lactic acid 5.4, white blood cell count 11.2. He was given IV fluids and kidney function has improved currently BUN 26, creatinine 1.5 however sodium now going down to 131. Patient admits that he still is feeling extremely weak and like his legs "are not working " mainly from weakness. He denies any numbness or tingling. Denies any back pain. He states that if he tries to stand up his legs are still weak. 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 No history of heart catheterization or stenting. He does admit that in the past that he was also diuretics he did get some lower extremity swelling however has not had any in quite some time. Currently denies any chest pain, pressure, shortness breath. Cardiology was consulted for ventricular tachycardia. He has been on telemetry with 2 episodes of 5 beat runs of nonsustained ventricular tachycardia. He denies any prior history of syncope or near-syncope however did have intracranial hemorrhage a few years back from a fall. DIAGNOSTICS EKG shows normal sinus rhythm, Q waves 3 and aVF, nonspecific minimal 0.25 ST depressions in the lateral leads. Chest x-ray shows no acute process. REVIEW OF SYSTEMS At the time of my exam: CONSTITUTIONAL: +fever, no chills. CARDIOVASCULAR: Denies chest pain, shortness of breath, orthopnea, PND or palpitations. RESPIRATORY: Denies cough. GASTROINTESTINAL: Denies abdominal pain, diarrhea, constipation, nausea or vomiting. MUSCULOSKELETAL: Denies myalgias. NEUROLOGIC: Denies numbness, tingling or weakness. ENDOCRINE: Denies fatigue, weight change, polydipsia or polyurina. GENITOURINARY: Denies burning, hematuria or urgency with micturation. HEMATOLOGIC: Denies history of anemia or bleeding. PHYSICAL EXAMINATION Vital signs reviewed. CONSTITUTIONAL: No apparent distress. HEENT: Head is normocephalic. Pupils are equal, round. Sclerae anicteric. Mucous membranes of the mouth are moist. No JVD. No carotid bruit. CHEST EXAMINATION: Lungs are clear to auscultation. No chest wall tenderness is noted on palpation or with deep breathing. HEART EXAMINATION: Regular rate and rhythm. S1, S2 heard. No murmurs, gallops or rub. ABDOMEN: Soft, nontender. Positive bowel sounds. EXTREMITIES: 1+ lower extremity edema and no calf tenderness. NEUROLOGIC EXAMINATION: Patient is awake, alert and oriented x3. ASSESSMENT 1. Nonsustained ventricular tachycardia 2. Near syncope with fall, suspect related to sepsis 3. Sepsis 4. Urinary tract infection 5. Mild dementia 6. History of intracranial hemorrhage 7. History of lower extremity edema on home diuretics. Rule out component of heart failure 8. Acute kidney injury likely related to hypotension on admission, decreased oral intake 9. Weakness lower extremities. Suspect related to debility and sepsis. PLAN Patient with asymptomatic nonsustained ventricular tachycardia. We will check 2-D echo to evaluate for any left ventricular dysfunction and any structural heart disease. We will add low-dose beta fauzia as well. Per history appears patient likely has chronic heart failure and initially was treated with IV fl uids and has improved from his acute kidney injury. He is however getting hyponatremic and mild lower extremity edema and may need to be started back on diuretics. Continue antibiotics and management of sepsis, still spiking fevers. Further recommendations to follow. Past Medical History Past Medical History: Cancer, CVA/TIA, Diabetes Mellitus, Hypertension Additional Past Medical History / Comment(s): CVA in 2015 and 2019. occasional confusion per . skin cancer on left side of chin and small spot inside lip- removed 06/10/21 History of Any Multi-Drug Resistant Organisms: None Reported Additional Past Surgical History / Comment(s): skin cancer removal 06/11/21 Past Psychological History: No Psychological Hx Reported Smoking Status: Former smoker Past Alcohol Use History: Rare Past Drug Use History: None Reported Medications and Allergies Home Medications Medication Instructions Recorded Confirmed Type Cephalexin [Keflex] 500 mg PO QID 06/11/21 06/11/21 History Donepezil [Aricept] 5 mg PO HS 06/11/21 06/11/21 History Furosemide [Lasix] 20 mg PO DAILY 06/11/21 06/11/21 History HYDROcodone/APAP 7.5-325MG [[place] 1 tab PO DAILY PRN 06/11/21 06/11/21 History 7.5-325] Lisinopril-Hctz 20-25 mg 1 tab PO BID 06/11/21 06/11/21 History [Zestoretic 20-25] Omeprazole 40 mg PO DAILY 06/11/21 06/11/21 History Repaglinide [Prandin] 1 mg PO BID 06/11/21 06/11/21 History Tamsulosin HCl [Flomax] 0.4 mg PO DAILY 06/11/21 06/11/21 History Allergies Allergy/AdvReac Type Severity Reaction Status Date / Time No Known Allergies Allergy Verified 06/11/21 09:58 Physical Exam Vitals: Vital Signs Temp Pulse Resp BP BP Pulse Ox 06/15/21 10:00 99.1 F 94 118/62 06/15/21 07:04 101.5 F H 108 H 18 174/73 95 06/15/21 02:27 98.1 F 68 17 126/68 96 06/14/21 19:50 98.5 F 89 18 160/72 94 L 06/14/21 16:11 99.9 F H 96 20 146/69 95 06/14/21 14:39 99.6 F 06/14/21 14:20 101.5 F H 06/14/21 13:14 101.2 F H Intake and Output 06/14/21 06/15/21 06/15/21 22:59 06:59 14:59 Other: Voiding Method Urinal # Voids 4 Results 06/13/21 07:59 06/15/21 06:56 Comprehensive Metabolic Panel 06/15/21 Range/Units 06:56 Sodium 131 L (135-145) mmol/L Potassium 4.2 (3.5-5.5) mmol/L Chloride 102 (96-109) mmol/L Carbon Dioxide 18.5 L (21.6-31.8) mmol/L BUN 26.1 (9.0-27.0) mg/dL Creatinine 1.5 (0.6-1.5) mg/dL Glucose 116 H (70-110) mg/dL Calcium 8.7 (8.7-10.3) mg/dL Current Medications Generic Name Dose Route Start Last Admin Trade Name Freq PRN Reason Stop Dose Admin Acetaminophen 650 mg 06/11/21 13:18 06/15/21 07:35 Acetaminophen Tab 325 Mg Tab PO 650 mg Q6HR PRN Administration Mild Pain or Fever > 100.5 Hydrocodone Bitart/Acetaminophen 1 each 06/14/21 17:35 06/14/21 18:02 Hydrocodone/Apap 7.5-325mg 1 Each Tab PO 1 each Q6HR PRN Administration Pain Donepezil HCl 5 mg 06/11/21 21:00 06/14/21 20:57 Donepezil 5 Mg Tab PO 5 mg HS RACHANA Administration Heparin Sodium (Porcine) 5,000 unit 06/12/21 21:00 06/15/21 07:35 Heparin Sodium,Porcine/Pf 5,000 Unit/0.5 Ml Syringe SQ 5,000 unit Q12HR RACHANA Administration Hydralazine HCl 25 mg 06/13/21 16:00 06/15/21 07:34 Hydralazine Hcl 25 Mg Tab PO 25 mg TID RACHANA Administration Insulin Aspart 0 unit 06/12/21 12:30 06/15/21 11:17 Insulin Aspart (Novolog) 100 Unit/Ml Vial SQ Not Given ACHS [facility] Protocol Multi-Ingred Cream/Lotion/Oil/Oint 1 applic 06/15/21 09:00 Hydrophilic Cream 180 Gm Tube TOPICAL DAILY [facility] Protocol Naloxone HCl 0.2 mg 06/11/21 13:18 Naloxone 0.4 Mg/Ml 1 Ml Vial IV Q2M PRN Opioid Reversal Pantoprazole Sodium 40 mg 06/12/21 09:00 06/15/21 07:34 Pantoprazole 40 Mg Tablet PO 40 mg [id number] RACHANA Administration Repaglinide 1 mg 06/11/21 21:00 06/15/21 07:35 Repaglinide 1 Mg Tab PO 1 mg BID RACHANA Administration Tamsulosin HCl 0.4 mg 06/12/21 09:00 06/15/21 07:35 Tamsulosin 0.4 Mg Cap.Er.24h PO 0.4 mg DAILY RACHANA Administration Intake and Output 06/14/21 06/15/21 06/15/21 22:59 06:59 14:59 Other: Voiding Method Urinal # Voids 4 06/13/21 07:59 06/15/21 06:56
[2021-06-15] MEDS: AZITHROMYCIN 500 MG TAB PO SCH (13:06)
[2021-06-15] MEDS: METOPROLOL SUCCINATE (ER) 25 MG TAB.ER.24H PO SCH (13:11)
[2021-06-15] MEDS: HYDROPHILIC CREAM 180 GM TUBE TOPICAL SCH (15:36)
[2021-06-15 16:21] LABS: Glucose,Whole Blood 113 mg/dL (75-99)
[2021-06-15 21:48] LABS: Glucose,Whole Blood 121 mg/dL (75-99)
[2021-06-15] MEDS: DONEPEZIL 5 MG TAB PO SCH (23:29)
--- NOTE | 2021-06-15 23:57 | XR ---
EXAMINATION TYPE: XR knee complete bilateral DATE OF EXAM: 06/15/2021 COMPARISON: NONE HISTORY: Pain and fever TECHNIQUE: 3 views each knee FINDINGS: There is moderate narrowing of the medial joint space of the left knee. There is bilateral spurring of the femoral and tibial condyles and more severe on the left side. There is bilateral zia drocalcinosis. There is bilateral knee joint effusions with spurring on the patella. IMPRESSION: There is mild osteoarthritis and pseudogout in the right knee. Small right knee joint eff usion. There is moderate osteoarthritis in the left knee with joint effusion. No fracture seen.
[2021-06-16 07:12] LABS: Glucose,Whole Blood 125 mg/dL (75-99)
[2021-06-16] MEDS: INSULIN ASPART (NovoLOG) 100 UNIT/ML VIAL SQ SCH ×4 (07:26→21:39)
[2021-06-16] MEDS: METOPROLOL SUCCINATE (ER) 25 MG TAB.ER.24H PO SCH (07:39)
[2021-06-16] MEDS: hydrALAZINE HCL 25 MG TAB PO SCH ×3 (07:39→21:44)
[2021-06-16] MEDS: TAMSULOSIN 0.4 MG CAP.ER.24H PO SCH (07:39)
[2021-06-16] MEDS: HEPARIN SODIUM,PORCINE/PF 5,000 UNIT/0.5 ML SYRINGE SQ SCH ×2 (07:40→21:44)
[2021-06-16] MEDS: PANTOPRAZOLE 40 MG TABLET PO SCH (07:40)
[2021-06-16] MEDS: AZITHROMYCIN 500 MG TAB PO SCH (07:41)
[2021-06-16] MEDS: REPAGLINIDE 1 MG TAB PO SCH ×2 (07:41→21:40)
[2021-06-16] MEDS: HYDROPHILIC CREAM 180 GM TUBE TOPICAL SCH (07:42)
--- NOTE | 2021-06-16 07:55 | P.PN ---
Subjective Progress Note Date: 06/15/21 HISTORY OF PRESENT ILLNESS This is an 85-year-old male patient of Dr. Root with past medical history of CVA with residual mild left-sided weakness, hypertension, diabetes mellitus type 2, diabetic neuropathy, gastroesophageal reflux disease, scale or dementia, benign prostatic hypertrophy, chronic kidney disease, chronic low back pain, skin cancer removal from his lower lip on 2 separate days, 06/09 and 06/10. Patient did not eat much yesterday due to this. He woke up yesterday had some coffee and some bread and was feeling nauseated. He started going to the bathroom when he felt dizzy and fell towards his left side and hit the door frame and the glass cabinet. He denies loss of consciousness. No abdominal pain no chest pain. No shortness of breath patient was noted have skin tears to his left forearm and left hand and abrasions to his face. He is complaining of pain to his neck back and both knees. Patient presented to emergency center for evaluation and initial blood pressure was found below 85/67 with repeat at 114/73, pulse ox 97% on room air, afebrile, heart rate in the 80s and 90s. WBC 11.2, hemoglobin 14.9, platelet count 239. Sodium 138, potassium 4.3, chloride 102, CO2 19, BUN 69 and creatinine 3.16. Blood sugar 189. Liver function tests were normal. Lactic acid 5.4. Troponin 0.021. Urinalysis was cloudy with nitrate and leukoesterase negative, 20 WBCs. Virus not detected. EKG was a sinus rhythm with occasional PVCs no acute ST elevation. Patient was provided 1 L of IV fluid bolus and Rocephin IV. Chest x-ray showed no acute process. CAT scan of the brain and cervical spine revealed age-related atrophy and chronic small vessel ischemic change without acute intracranial process. No evidence of acute fracture or subluxation of the cervical spine. CAT scan of the face revealed no evidence of depressed or displaced facial bone fracture. Renal ultrasound revealed no acute findings, no hydronephrosis bilaterally. Patient admitted to the [facility] floor, lisinoprilhydrochlorothiazide and Lasix placed on hold, consult with nephrology. 06/13: Patient has been seen by nephrology with recommendations to Hep-Lock IVs, continue to hold lisinopril and diuretics, encourage oral intake, avoid nephrotoxins, orthostatics. Further workup for diabetic kidney disease as an outpatient. Patient has had good urine output. No vomiting or diarrhea. Urine culture is no growth at 18 hours. Repeat blood work reveals sodium 139, potassium 4.2, chloride 109, CO2 20, BUN 37 creatinine 1.55. Blood sugars runni ng between 125 and 149. Magnesium 1.[address] Davis. monitoring specialist has been a sinus rhythm. Antibiotics will be discontinued, patient had no complaints of dysuria. He states he wants to walk in the hallway today. 06/14: Patient was prepared for discharge yesterday but required 2 person to get out of bed. Patient states that he ambulated well with walker. No PT/OT availa ble this weekend and discharge was held until patient has full evaluation and may need subacute rehab. Patient did have a run of 8 beats of V. tach and magnesium will be replaced, recheck electrolytes. Incentive spirometry has been added as patient had temperature max 100.1. Patient has large skin tear on the left forearm but no sign of infection. Wound care consult added. 06/15: She had another run of 9 beats of V. tach and cardiology consult has been added. Patient is denying any shortness of breath. Incentive spirometry to be started although ordered yesterday. PT to work with the patient today regarding discharge planning and social work is following. Patient continues to complain of bilateral knee pain for which he appears to have some fluid, x-rays and orthopedic consult added. BUN 26 and creatinine 1.5, sodium 131. REVIEW OF SYSTEMS Constitutional: No fever, no chills, no night sweats. No weight change. Denies weakness, denies fatigue no lethargy. No daytime sleepiness. EENT: No headache. No blurred vision or double vision, no loss of vision. No loss of Hearing, no ringing in the ears, no dizziness. No nasal drainage or congestion. No epistaxis. No sore throat. Lungs: No shortness of breath, cough, no sputum production. No wheezing. Cardiovascular: No chest pain, no lower extremity edema. No palpitations. No paroxysmal nocturnal dyspnea. No orthopnea. Reports lightheadedness or dizziness. No syncopal episodes. Abdominal: No abdominal pain. No nausea, vomiting. No diarrhea. No constipation. No bloody or tarry stools.. No loss of appetite. Genitourinary: No dysuria, increased frequency, urgency. No urinary retention. Musculoskeletal: No myalgias. No muscle weakness, no gait dysfunction,Reports falls. Reports back pain. Reports neck pain. Reports bilateral knee pain. Integumentary: No wounds, no lesions. No rash or pruritus. No unusual bruising. Neurologic: No aphasia. No facial droop. No change in mentation. No head injury. No headache. No paralysis. No paresthesia. Psychiatric: No depression. No anxiety. No mood swings. Endocrine: No abnormal blood sugars. No weight change. PHYSICAL EXAMINATION Gen: This is an 85-year-old male. He is resting in bed and appears to be comfortable and in no acute distress. HEENT: Head is atraumatic, normocephalic. Pupils equal, round. Sclerae is anicteric. NECK: Supple. No JVD. No lymphadenopathy. No thyromegaly. LUNGS: Clear to auscultation. No wheezes or rhonchi. No intercostal retractions. HEART: Regular rate and rhythm. No murmur. ABDOMEN: Soft. Bowel sounds are present. No masses. No tenderness. EXTREMITIES: No pedal edema. No calf tenderness. Unable to palpate dorsalis pedis on the right side, foot is warm. Left dorsalis pedis 1+. Bilateral knee effusions. NEUROLOGICAL: Patient is awake, alert and oriented x3. Cranial nerves 2 through 12 are grossly intact. ASSESSMENT AND PLAN 1. Acute kidney injury. Consult with nephrology, continue renal diet. 2. Lactic acidosis secondary to acute kidney injury. off IV fluids. 3. Possible urinary tract infection ruled out with negative urine culture. 4. Skin cancer with resection on 06/09 and 06/10. 5. Dizziness with Fall with multiple abrasions, no acute fractures. Continue [place] for pain. PT, OT consults. Obtain orthostatic vital signs, continue compliance monitor. 6. Peripheral vascular disease right lower extremity. Unable to obtain pulses on the dorsalis pedis. Ultrasound arterial study. 7. Hypertension. Hold lisinopril hydrochlorothiazide and Lasix. Continue hydralazine 25 mg 3x daily 8. History of CVA 2 in 2016 affecting his right side and 2001 affecting his left side. 9. Diabetes mellitus type 2. Resume Prandin 1 mg twice daily, start NovoLog scale before meals and at bedtime, A1c. 10. Vascular dementia. Continue Aricept 5 mg at bedtime 11. Gastroesophageal reflux disease and GI prophylaxis. Continue omeprazole 40 mg daily 12. Benign prostatic hypertrophy. Continue Flomax or 0.4 mg daily. 13. Short runs of V. tach 2 episodes, consult with cardiology. 14. Bilateral knee effusions. X-rays and consult with orthopedics. 15. DVT prophylaxis. Heparin subcu 16. COVID-19 testing negative. Patient has been hospitalized during a pandemic. DISCHARGE PLAN Home with [facility]. PT and OT consults requested to be completed prior to discharge. Social work consult. Impression and plan of care have been directed as dictated by the signing physician. Estela Smith nurse practitioner acting as scribe for signing physician. Objective - Vital Signs Vital signs: Vital Signs Temp 99.1 F 06/15/21 10:00 Pulse 94 06/15/21 10:00 Resp 18 06/15/21 07:04 BP 118/62 06/15/21 10:00 Pulse Ox 95 06/15/21 07:04 Intake & Output 06/14/21 06/15/21 06/15/21 18:59 06:59 18:59 Other: Voiding Method Urinal Urinal # Voids 4 - Labs CBC & Chem 7: 06/13/21 07:59 06/15/21 06:56 Labs: Abnormal Lab Results - Last 24 Hours (Table) 06/14/21 06/14/21 06/15/21 Range/Units 16:57 20:43 02:30 POC Glucose (mg/dL) 114 H 110 H (75-99) mg/dL Urine Protein 2+ H (Negative) Ur Leukocyte Esterase Moderate H (Negative) Urine Mucus Rare H (None) /hpf 06/15/21 06/15/21 Range/Units 06:44 11:12 POC Glucose (mg/dL) 118 H 69 L (75-99) mg/dL Urine Protein (Negative) Ur Leukocyte Esterase (Negative) Urine Mucus (None) /hpf
--- NOTE | 2021-06-16 11:33 | PN ---
PROGRESS NOTE Patient is seen for followup for acute kidney injury. Patient's renal function has improved. Serum creatinine down to 1.5 from 3.1 on initial admission. PHYSICAL EXAMINATION: On examination today, blood pressure 134/94, heart rate 107 per minute. He is afebrile. Examination of the heart S1, S2. Examination of the lungs, bilateral breath sounds are heard. Abdomen is soft, nontender. Examination of lower extremities shows no significant edema. [employer] exam grossly intact. LAB: Show sodium 131, potassium 4.2, CO2 is 18.5, BUN 26, creatinine 1.5. ASSESSMENT: 1. Acute kidney injury, mostly prerenal associated with hypotension, hypovolemia, improved with IV hydration. No evidence of obstruction on ultrasound. UA shows 1+ protein, most likely from diabetic kidney disease. 2. Metabolic acidosis associated with acute kidney injury. IV fluids. Now improved. 3. Status post fall. 4. Pyuria, maintained on antibiotics. 5. Benign hypertension. 6. Type 2 diabetes. PLAN: Repeat labs in a.m. Avoid hypotension. Encourage increased oral intake. MMODL / IJN: [id number] /
[2021-06-16 11:34] LABS: Glucose,Whole Blood 77 mg/dL (75-99)
--- NOTE | 2021-06-16 11:55 | P.CNOR ---
History of Present Illness - [facility] Consult date: 06/16/21 History of present illness: This patient is a 85-year-old male with past medical history of CVA, hypertension, diabetes, GERD, chronic kidney disease that presented to [facility] on 06/11/21 after a fall. Patient states he has skin cancer removal from his lip on 06/09/21, and 06/10/21. He states after he returned home, he felt dizzy and fell to the ground. He presented to the emergency department, patient was found to have acute kidney injury and was hypotensive, therefore he was admitted under the care of internal medicine with a consult placed to nephrology for acute kidney injury and cardiology was consulted for ventricular tachycardia. Orthopedics has been consulted for evaluation of bilateral knee pain and knee effusions. Since admission, patient has been febrile. He was found to have a UTI, and was treated with Rocehpin, urine culture was negative. Patient is seen and examined bedside this morning. He states he has experienced intermittent knee pain for many months. He states the left is usually worse, although his right knee is bothering him more today. He states his knees have been more painful after his fall. Patient has been febrile over the past few days. Patient states he does not feel febrile and currently feels well. He is eating well. He denies chest pain, shortness of breath, nausea, vomiting, ch ills. He denies back pain or hip pain. He has no complaints at this time. Vital signs stable, patient is currently afebrile. Past Medical History Past Medical History: Cancer, CVA/TIA, Diabetes Mellitus, Hypertension Additional Past Medical History / Comment(s): CVA in 2015 and 2019. occasional confusion per . skin cancer on left side of chin and small spot inside lip- removed 06/10/21 History of Any Multi-Drug Resistant Organisms: None Reported Additional Past Surgical History / Comment(s): skin cancer removal 06/11/21 Past Psychological History: No Psychological Hx Reported Smoking Status: Former smoker Past Alcohol Use History: Rare Past Drug Use History: None Reported Medications and Allergies Home Medications Medication Instructions Recorded Confirmed Type Cephalexin [Keflex] 500 mg PO QID 06/11/21 06/11/21 History Donepezil [Aricept] 5 mg PO HS 06/11/21 06/11/21 History Furosemide [Lasix] 20 mg PO DAILY 06/11/21 06/11/21 History HYDROcodone/APAP 7.5-325MG [[place] 1 tab PO DAILY PRN 06/11/21 06/11/21 History 7.5-325] Lisinopril-Hctz 20-25 mg 1 tab PO BID 06/11/21 06/11/21 History [Zestoretic 20-25] Omeprazole 40 mg PO DAILY 06/11/21 06/11/21 History Repaglinide [Prandin] 1 mg PO BID 06/11/21 06/11/21 History Tamsulosin HCl [Flomax] 0.4 mg PO DAILY 06/11/21 06/11/21 History Allergies Allergy/AdvReac Type Severity Reaction Status Date / Time No Known Allergies Allergy Verified 06/11/21 09:58 Physical Examination On examination, patient is lying bed in no apparent distress. He is alert and orientated x3. patient does have healing abrasions at the bridge of his nose. His breathing appears nonlabored. On inspection of the right knee, there is a knee effusion. There is no overlying erythema, warmth. No lacerations or abrasions of the knee. There is mild PROM of the knee. No pain with PROM of the right hip. Motor and sensory function intact right lower extremity. Right lower extremity is warm and well perfused. Calf is soft and non-tender. On inspection of the left knee, there is a small knee effusion. There is no overlying erythema, warmth. No lacerations or abrasions of the knee. No pain with palpation of the knee. There is no PROM of the knee. No pain with PROM of the right hip. Motor and sensory function intact right lower extremity. Right lower extremity is warm and well perfused. Calf is soft and non-tender. Results Right knee x-ray 06/15/21: No acute or healing fractures. No acute bony abnormalities. Chondrocalcinosis present. Left knee x-ray 06/15/21: Moderate arthritic changes, most severe at the medial compartment. No acute or healing fractures. - Labs Labs: Abnormal Lab Results - Last 24 Hours (Table) 06/15/21 06/15/21 06/15/21 Range/Units 06:56 16:19 21:28 Sodium 131 L (135-145) mmol/L Carbon Dioxide 18.5 L (21.6-31.8) mmol/L Est GFR (CKD-EPI)AfAm 49.8 L (60.0-200.0) Est GFR (CKD-EPI)NonAf 43.0 L (60.0-200.0) Glucose 116 H (70-110) mg/dL POC Glucose (mg/dL) 113 H 121 H (75-99) mg/dL 06/16/21 Range/Units 07:11 Sodium (135-145) mmol/L Carbon Dioxide (21.6-31.8) mmol/L Est GFR (CKD-EPI)AfAm (60.0-200.0) Est GFR (CKD-EPI)NonAf (60.0-200.0) Glucose (70-110) mg/dL POC Glucose (mg/dL) 125 H (75-99) mg/dL H & H 06/11/21 06/13/21 Range/Units 10:31 07:59 Hgb 14.9 11.9 L (13.0-17.5) gm/dL Hct 45.4 36.1 L (39.0-53.0) % Coagulation 06/11/21 Range/Units 10:31 INR 1.1 (<1.2) Result Diagrams: 06/13/21 07:59 06/15/21 06:56 Assessment and Plan Assessment: Bilateral knee pain Bilateral knee effusion Knee arthritis Plan: - Patient was discussed with Dr. Kumar. We have low suspicion for infection at this time, although recommend aspiration of bilateral knee effusion for further evaluation. Patient is agreeable to this plan. - Bilateral knee synovial fluid was sent to the lab. We will await fluid an alysis results to provide further recommendations. - Pain management as needed. - Medical management per internal medicine, cardiology, nephrology. Procedure: - Verbal consent for a right knee aspiration was obtained. The skin overlying the superior lateral pole of the patella was anesthetized with ethyl chloride spray. The skin was then prepped with ChloraPrep. An 18-gauge needle was used to aspirate about 30 mL of cloudy yellow fluid from the knee. The fluid was aspirated freely. The needle was withdrawn and a bandage was applied. The patient tolerated this well. - Verbal consent for left knee aspiration was obtained. The skin overlying the superior lateral pole of the patella was anesthetized with ethyl chloride spray. The skin was then prepped with ChloraPrep. An 18-gauge needle was used to aspirate about 35 mL of blood-tinged, yellow cloudy fluid from the knee. the f luid was aspirated freely. The needle was withdrawn and a bandage was applied. The patient tolerated this well. Synovial fluid from the right knee and left knee were correctly labeled, and sent to the lab for analysis.
--- NOTE | 2021-06-16 13:27 | P.PN ---
Subjective HISTORY OF PRESENTING ILLNESS This is a pleasant 85-year-old with past medical history significant for hypertension, prior intracranial hemorrhage related to fall, chronic lower extremity edema improved on diuretics, skin cancer status post removal, chronic kidney disease, arthritis. Patient initially had procedure done for a skin cancer on his neck where he apparently was And monitored for 24 hours. He admits he was nothing by mouth and has not been eating or drinking much during that time and then was discharged Tuesday. On he then had an episode where he started feeling lightheaded and feeling his legs giving out and then f ell. He denies having any fevers or chills however over the last 2 days has had multiple fevers. He denies any pain with urination however was found to have mild white blood cell count in his urine. His diuretics were stopped and initially his BUN was 69, creatinine 3.16, lactic acid 5.4, white blood cell count 11.2. He was given IV fluids and kidney function has improved currently BUN 26, creatinine 1.5 however sodium now going down to 131. Patient admits that he still is feeling extremely weak and like his legs "are not working "mainly from weakness. He denies any numbness or tingling. Denies any back pain. He states that if he tries to stand up his legs are still weak. He does not follow with a public transportation inspector and in the past has been told that his heart function has been good. No history of heart catheterization or stenting. He does admit that in the past that he was also diuretics he did get some lower extremity swelling however has not had any in quite some time. Currently denies any chest pain, pressure, shortness breath. Cardiology was consulted for ventricular tachycardia. He has been on telemetry with 2 episodes of 5 beat runs of nonsustained ventricular tachycardia. He denies any prior history of syncope or near-syncope however did have intracranial hemorrhage a few years back from a fall. 06/16/2021 Patient seen and examined sitting up in bed in no acute distress. He has no symptoms of chest pain or shortness of breath. Telemetry tracings reviewed, no further evidence of ventricular arrhythmia. Blood pressure 144/71 heart rate 87 afebrile maintaining oxygen saturation on room air. Echocardiogram obtained revealed preserved LV systolic function with EF 60-65%. He will be undergoing a knee effusion aspiration per ortho although they have a low suspicion for infection. PHYSICAL EXAMINATION CONSTITUTIONAL: No apparent distress. HEENT: Head is normocephalic. Pupils are equal, round. Sclerae anicteric. Mucous membranes of the mouth are moist. No JVD. No carotid bruit. CHEST EXAMINATION: Lungs are clear to auscultation. No chest wall tenderness is noted on palpation or with deep breathing. HEART EXAMINATION: Regular rate and rhythm. S1, S2 heard. No murmurs, gallops or rub. EXTREMITIES: 1+ lower extremity edema and no calf tenderness. ASSESSMENT Nonsustained ventricular tachycardia Near syncope with fall, suspect related to sepsis Sepsis Urinary tract infection Mild dementia History of intracranial hemorrhage History of lower extremity edema on home diuretics. Rule out component of heart failure Acute kidney injury likely related to hypotension on admission, decreased oral intake Weakness lower extremities. Suspect related to debility and sepsis. PLAN Stable from a cardiac perspective. Normal LV function. Continue toprol as previously ordered. Recommend resuming his lasix. We will follow along as needed, please call with further questions or concerns. Nurse Practitioner note has been reviewed, I agree with a documented findings and plan of care. Patient was seen and examined. Objective - Vital Signs Vital signs: Vital Signs Temp 98.6 F 06/16/21 08:00 Pulse 87 06/16/21 08:00 Resp 17 06/16/21 08:00 BP 144/71 06/16/21 08:00 Pulse Ox 96 06/16/21 08:00 Intake & Output 06/15/21 06/16/21 06/16/21 18:59 06:59 18:59 Other: Voiding Method Urinal Urinal # Voids 3 4 # Bowel Movements 1 - Labs CBC & Chem 7: 06/13/21 07:59 06/15/21 06:56 Labs: Abnormal Lab Results - Last 24 Hours (Table) 06/15/21 06/15/21 06/16/21 Range/Units 16:19 21:28 07:11 POC Glucose (mg/dL) 113 H 121 H 125 H (75-99) mg/dL
[2021-06-16] MEDS: HYDROcodone/APAP 7.5-325MG 1 EACH TAB PO PRN (13:29)
--- NOTE | 2021-06-16 13:59 | P.PN ---
Progress Note - Text Progress Note Date: 06/16/21 Patient seen and evaluated. Agree with consult by Nasrin Vitale PA-C. The patient has acute onset, atraumatic knee pain and effusions, although he does report chronic arthritic type pain. Clinically he has moderate to large effusions bilaterally, but has minimal overlying erythema or warmth. Both knees were aspirated and the fluid, although cloudy, did not appear purulent. The fluid was sent for cell count, cultures and crystal analysis. 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 We will follow the fluid analysis. If they are positive for crystals or an acute arthritic flare, we could give him a steroid injection. If the fluid comes back concerning for infection, he would need a formal I&D in the OR. We will continue to follow him.
[2021-06-16 14:25] LABS: Appearance,BF Cloudy; Color,BF Yellow; Nucleated Cells, Body Fluid 4950 /uL; RBC, Body Fluid 250 /uL
[2021-06-16 14:26] LABS: Appearance,BF Cloudy; Color,BF Yellow; Nucleated Cells, Body Fluid 1400 /uL; RBC, Body Fluid 3200 /uL
[2021-06-16 14:30] LABS: Mononuclear WBC,Body Fluid 5 %; Polynuclear WBC,Body Fluid 95 %; Total Cells Counted,Body Fluid 100
[2021-06-16 14:31] LABS: Mononuclear WBC,Body Fluid 8 %; Polynuclear WBC,Body Fluid 92 %; Total Cells Counted,Body Fluid 100
--- NOTE | 2021-06-16 15:03 | P.PN ---
Subjective Progress Note Date: 06/16/21 HISTORY OF PRESENT ILLNESS This is an 85-year-old male patient of Dr. Root with past medical history of CVA with residual mild left-sided weakness, hypertension, diabetes mellitus type 2, diabetic neuropathy, gastroesophageal reflux disease, scale or dementia, benign prostatic hypertrophy, chronic kidney disease, chronic low back pain, skin cancer removal from his lower lip on 2 separate days, 06/09 and 06/10. Patient did not eat much yesterday due to this. He woke up yesterday had some coffee and some bread and was feeling nauseated. He started going to the bathroom when he felt dizzy and fell towards his left side and hit the door frame and the glass cabinet. He denies loss of consciousness. No abdominal pain no chest pain. No shortness of breath patient was noted have skin tears to his left forearm and left hand and abrasions to his face. He is complaining of pain to his neck back and both knees. Patient presented to [facility] emergency center for evaluation and initial blood pressure was found below 85/67 with repeat at 114/73, pulse ox 97% on room air, afebrile, heart rate in the 80s and 90s. WBC 11.2, hemoglobin 14.9, platelet count 239. Sodium 138, potassium 4.3, chloride 102, CO2 19, BUN 69 and creatinine 3.16. Blood sugar 189. Liver function tests were normal. Lactic acid 5.4. Troponin 0.021. Urinalysis was cloudy with nitrate and leukoesterase negative, 20 WBCs. Virus not detected. EKG was a sinus rhythm with occasional PVCs no acute ST elevation. Patient was provided 1 L of IV fluid bolus and Rocephin IV. Chest x-ray showed no acute process. CAT scan of the brain and cervical spine revealed age-related atrophy and chronic small vessel ischemic change without acute intracranial process. No evidence of acute fracture or subluxation of the cervical spine. CAT scan of the face revealed no evidence of depressed or displaced facial bone fracture. Renal ultrasound revealed no acute findings, no hydronephrosis bilaterally. Patient admitted to the [facility] floor, lisinoprilhydrochlorothiazide and Lasix placed on hold, consult with nephrology. 06/13: Patient has been seen by nephrology with recommendations to Hep-Lock IVs, continue to hold lisinopril and diuretics, encourage oral intake, avoid nephrotoxins, orthostatics. Further workup for diabetic kidney disease as an outpatient. Patient has had good urine output. No vomiting or diarrhea. Urine culture is no growth at 18 hours. Repeat blood work reveals sodium 139, potassium 4.2, chloride 109, CO2 20, BUN 37 creatinine 1.55. Blood sugars runni ng between 125 and 149. Magnesium 1.[address] Davis. shelter monitor has been a sinus rhythm. Antibiotics will be discontinued, patient had no complaints of dysuria. He states he wants to walk in the hallway today. 06/14: Patient was prepared for discharge yesterday but required 2 person to get out of bed. Patient states that he ambulated well with walker. No PT/OT availa ble this weekend and discharge was held until patient has full evaluation and may need subacute rehab. Patient did have a run of 8 beats of V. tach and magnesium will be replaced, recheck electrolytes. Incentive spirometry has been added as patient had temperature max 100.1. Patient has large skin tear on the left forearm but no sign of infection. Wound care consult added. 06/15: She had another run of 9 beats of V. tach and cardiology consult has been added. Patient is denying any shortness of breath. Incentive spirometry to be started although ordered yesterday. PT to work with the patient today regarding discharge planning and social work is following. Patient continues to complain of bilateral knee pain for which he appears to have some fluid, x-rays and orthopedic consult added. BUN 26 and creatinine 1.5, sodium 131. 06/16: Patient has been seen by orthopedics and aspiration done on both knees which was cloudy and sent for testing. Patient states he feels good but contin ues to have bilateral knee pain. He has been afebrile for greater than 24 hours. Patient did not have any ventricular tachycardia overnight. Echocardiogram was done which revealed EF of 60-65%. Etiology has now signed off. Patient is agreeable for subacute rehab and he is scheduled to go to [facility], we'll monitor overnight and plan for discharge tomorrow. REVIEW OF SYSTEMS Constitutional: No fever, no chills, no night sweats. No weight change. Denies weakness, denies fatigue no lethargy. No daytime sleepiness. EENT: No headache. No nasal drainage or congestion. No epistaxis. No sore throat. Lungs: No shortness of breath, cough, no sputum production. No wheezing. Cardiovascular: No chest pain, no lower extremity edema. No palpitations. No paroxysmal nocturnal dyspnea. No orthopnea. Reports lightheadedness or dizziness. No syncopal episodes. Abdominal: No abdominal pain. No nausea, vomiting. No diarrhea. No constipation. No bloody or tarry stools.. No loss of appetite. Genitourinary: No dysuria, increased frequency, urgency. No urinary retention. Musculoskeletal: No myalgias. No muscle weakness, no gait dysfunction,Reports falls. Reports back pain. Reports neck pain. Reports bilateral knee pain. Integumentary: No wounds, no lesions. No rash or pruritus. Neurologic: No aphasia. No facial droop. No change in mentation. No head injury. No headache. No paralysis. No paresthesia. Psychiatric: No depression. No anxiety. No mood swings. Endocrine: No abnormal blood sugars. No weight change. PHYSICAL EXAMINATION Gen: This is an 85-year-old male. He is resting in bed and appears to be comfortable and in no acute distress. HEENT: Head is atraumatic, normocephalic. Pupils equal, round. Sclerae is anicteric. NECK: Supple. No JVD. No lymphadenopathy. No thyromegaly. LUNGS: Clear to auscultation. No wheezes or rhonchi. No intercostal retractions. HEART: Regular rate and rhythm. No murmur. ABDOMEN: Soft. Bowel sounds are present. No masses. No tenderness. EXTREMITIES: No pedal edema. No calf tenderness. Unable to palpate dorsalis pedis on the right side, foot is warm. Left dorsalis pedis 1+. Bilateral knee effusions. NEUROLOGICAL: Patient is awake, alert and oriented x3. Cranial nerves 2 through 12 are grossly intact. ASSESSMENT AND PLAN 1. Acute kidney injury. Consult with nephrology, continue renal diet. 2. Lactic acidosis secondary to acute kidney injury. off IV fluids. 3. Possible urinary tract infection ruled out with negative urine culture. 4. Skin cancer with resection on 06/09 and 06/10. 5. Dizziness with Fall with multiple abrasions, no acute fractures. Continue [place] for pain. PT, OT consults. Obtain orthostatic vital signs, continue monitor and storage bin tender. 6. Peripheral vascular disease right lower extremity. Unable to obtain pulses on the dorsalis pedis. Ultrasound arterial study. 7. Hypertension. Lasix resumed. ontinue hydralazine 25 mg 3x daily 8. History of CVA 2 in 2015 affecting his right side and 2001 affecting his left side. 9. Diabetes mellitus type 2. Resume Prandin 1 mg twice daily, start NovoLog scale before meals and at bedtime, A1c. 10. Vascular dementia. Continue Aricept 5 mg at bedtime 11. Gastroesophageal reflux disease and GI prophylaxis. Continue omeprazole 40 mg daily 12. Benign prostatic hypertrophy. Continue Flomax or 0.4 mg daily. 13. Short runs of V. tach 2 episodes, consult with cardiology appreciated. Echocardiogram obtained with normal EF, continue Toprol-XL 12.5 mg daily . 14. Bilateral knee effusions. X-rays and consult with orthopedics. 15. DVT prophylaxis. Heparin subcu 16. COVID-19 testing negative. Patient has been hospitalized during a pandemic. DISCHARGE PLAN Home with [facility]. PT and OT consults requested to be completed prior to discharge. Social work consult. Impression and plan of care have been directed as dictated by the signing physician. Estela Smith nurse practitioner acting as scribe for signing physician. Objective - Vital Signs Vital signs: Vital Signs Temp 98.6 F 06/16/21 08:00 Pulse 87 06/16/21 08:00 Resp 17 06/16/21 08:00 BP 144/71 06/16/21 08:00 Pulse Ox 96 06/16/21 08:00 Intake & Output 06/15/21 06/16/21 06/16/21 18:59 06:59 18:59 Other: Voiding Method Urinal Urinal # Voids 3 4 # Bowel Movements 1 - Labs CBC & Chem 7: 06/13/21 07:59 06/15/21 06:56 Labs: Abnormal Lab Results - Last 24 Hours (Table) 06/15/21 06/15/21 06/16/21 Range/Units 16:19 21:28 07:11 POC Glucose (mg/dL) 113 H 121 H 125 H (75-99) mg/dL
[2021-06-16] MEDS: FUROSEMIDE 20 MG TAB PO SCH (15:52)
[2021-06-16 16:38] LABS: Glucose,Whole Blood 150 mg/dL (75-99)
--- NOTE | 2021-06-16 17:48 | PN ---
PROGRESS NOTE Patient is seen for followup for acute kidney injury. Renal function has improved; serum creatinine 1.5 on 06/15/2021 from peak of 3.16. No significant complaints today. No labs available from today. On examination, blood pressure is 144/71, heart rate of 87 per minute. Patient is afebrile. EXAMINATION OF THE HEART: S1 and S2. EXAMINATION OF LUNGS: Decreased breath sounds at the bases. Abdomen is soft, non-tender. Examination of lower extremities shows edema trace bilaterally. 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 Labs are not available from today. ASSESSMENT: 1. Acute kidney injury associated with hypotension, hypovolemia, improved with IV hydration. No evidence of obstruction on ultrasound. UA shows 1+ protein, most likely from underlying diabetic kidney disease. 2. Metabolic acidosis associated with acute kidney injury and IV fluids, now improved. 3. Status post fall. 4. Pyuria, maintained on antibiotics. 5. Benign hypertension. 6. Type 2 diabetes. 7. Mild hypervolemia. PLAN: Agree with Lasix. Hold off on IV fluids. Repeat labs in a.m. MMODL / IJN: [id number] /
[2021-06-16 20:49] LABS: Glucose,Whole Blood 138 mg/dL (75-99)
[2021-06-16] MEDS: DONEPEZIL 5 MG TAB PO SCH (21:44)
[2021-06-17 07:27] LABS: Glucose,Whole Blood 145 mg/dL (75-99)
[2021-06-17] MEDS: HEPARIN SODIUM,PORCINE/PF 5,000 UNIT/0.5 ML SYRINGE SQ SCH (07:55)
[2021-06-17] MEDS: INSULIN ASPART (NovoLOG) 100 UNIT/ML VIAL SQ SCH ×3 (07:55→18:04)
[2021-06-17] MEDS: REPAGLINIDE 1 MG TAB PO SCH (07:56)
[2021-06-17] MEDS: hydrALAZINE HCL 25 MG TAB PO SCH ×2 (07:56→18:06)
[2021-06-17] MEDS: TAMSULOSIN 0.4 MG CAP.ER.24H PO SCH (07:56)
[2021-06-17] MEDS: FUROSEMIDE 20 MG TAB PO SCH (07:56)
[2021-06-17] MEDS: PANTOPRAZOLE 40 MG TABLET PO SCH (07:56)
[2021-06-17] MEDS: METOPROLOL SUCCINATE (ER) 25 MG TAB.ER.24H PO SCH (07:56)
[2021-06-17] MEDS: AZITHROMYCIN 500 MG TAB PO SCH (07:56)
[2021-06-17 08:44] VITALS: BP 144/63; PULSE 87; RESP 17; TEMP 98.6
[2021-06-17] MEDS: HYDROPHILIC CREAM 180 GM TUBE TOPICAL SCH (09:04)
[2021-06-17 11:26] LABS: African American GFR (CKD) 46 (>60 ml/min/1.73 sqM); Anion Gap 8 mmol/L; Blood Urea Nitrogen 40 mg/dL (9-20); Calcium 8.6 mg/dL (8.4-10.2); Carbon Dioxide 19 mmol/L (22-30); Chloride 106 mmol/L (98-107); Glucose 113 mg/dL (74-99); Non-African American GFR(CKD) 40 (>60 ml/min/1.73 sqM); Potassium 4.1 mmol/L (3.5-5.1); Sodium 133 mmol/L (137-145)
[2021-06-17] MEDS ORDERED: methylPREDNISolone ACETATE 40 MG/ML 1 ML VIAL INTRAARTIC STA (11:28)
[2021-06-17] MEDS ORDERED: methylPREDNISolone ACETATE 40 MG/ML 1 ML VIAL INTRAARTIC ONE (11:30)
[2021-06-17 11:57] LABS: Glucose,Whole Blood 97 mg/dL (75-99)
[2021-06-17] MEDS ORDERED: FUROSEMIDE 10 MG/ML 2 ML VIAL IV ONE (12:21)
[2021-06-17] MEDS ORDERED: LIDOCAINE 2% (PF) 20 MG/ML 5 ML VIAL ONE (12:35)
[2021-06-17] MEDS ORDERED: LIDOCAINE 1% INJ 10MG/ML (20 ML MDV) ONE (12:36)
--- NOTE | 2021-06-17 12:48 | CDI ---
Documentation Clarification Form Date: 06/17/2021 12:17:09 PM From: Dione Montejo RN, CCDS Admit Date: 06/11/2021 03:30:00 PM Patient Name: Rafael Hoffmann Visit Number: [id number] Discharge Date: ATTENTION: The Clinical Documentation Specialists (CDI) and [facility] Coding Staff appreciate your assistance in clarifying documentation. Please respond to the clarification below the line at the bottom and electronically sign. The CDI & [facility] Coding staff will review the response and follow-up if needed. Please note: Queries are made part of the Legal Health Record. If you have any questions, please contact the author of this message via ITS. Dr. Kecia Waldron The patient presented with the following clinical indicators. Additional clarification regarding the etiology/cause of the clinical indicators is requested. 06/15-06/16 Cardiology consult and progress note: near syncope with fall, suspect related to sepsis. Sepsis. Urinary tract infection Asymptomatic nonsustained ventricular tachycardia. History/Risk Factors: Diabetes Mellitus, Hypertension, CVA, former smoker Clinical Indicators: [id number] male present with fall weakness, not eating or drinking well. 06/11 Vital sign: 85/67 92 18 97.8 95 % RA 06/11 WBC: 11.2, BUN 57, Creatinine 2.34 06/11 Lactic acid: 5.4, 2.1 06/11 UA: Urine Leukocyte Esterase negative 06/11 Urine Culture: No growth after 18 hours 06/11 CXR: No evidence for acute pulmonary disease 06/11 Renal Ultrasound: No evidence for hydronephrosis 06/11 Blood cultures: No growth Treatment: .9NS 1,000 ML Bolus Rocephin 1 GM IVPB Q 24 HRS 06/15 Zithromax 500 MG PO DAILY 06/15-06/17 In your professional opinion, please clarify if these findings signify one of the following conditions: [ ] Sepsis POA [ ] Sepsis ruled out [ ] Severe Sepsis with organ failure [ ] SIRS, without underlying infectious process [ ] Other, please specify [ ] Unable to determine SIRS Criteria: 2 or more of the following may indicate SIRS -Temperature < 96.8F (36C) or > 101.0F (38.3C) -Heart Rate > 90 bpm -Respiratory Rate > 20 breaths/min or PaCO2 < 32 mmHg -White Blood Cell Count > 12,000 or < 4,000 cells/mm3 or > 10% bands (Template Last Reviewed: October 2020) Fever secondary to atelectasis, no signs of sepsis Dictated By: Estela Smith Signed By: STEFAN/ [id number] TD/TT:06/13/21 1130 OCTAVIO
[2021-06-17] MEDS ORDERED: LIDOCAINE 2% INJ 20 MG/ML (20 ML MDV) MISCELLANE ONE (13:00)
[2021-06-17] MEDS ORDERED: FUROSEMIDE 40 MG TAB PO STA (13:59)
--- NOTE | 2021-06-17 14:32 | PN ---
PROGRESS NOTE Patient is seen for followup for acute kidney injury. Renal function has improved. Serum creatinine staying stable at about 1.5 mg/dL. PHYSICAL EXAMINATION: On examination today, blood pressure 144/63, heart rate 87 per minute. Patient is afebrile. Examination of the heart S1, S2. Examination of the lungs, bilateral breath sounds are heard. Abdomen is soft, nontender. Examination of lower extremities shows no significant edema. SENIOR DATABASE ADMINISTRATOR exam grossly intact. LAB: Show sodium 133, potassium 4.1, BUN 40, creatinine 1.5. ASSESSMENT: 1. Acute kidney injury. Renal function improved. Creatinine is stable. Etiology was hypotension, hypovolemia. UA showed 1+ protein, most likely from underlying diabetic kidney disease. 2. Status post fall. 3. Pyuria, maintained on antibiotics. 4. Metabolic acidosis associated with acute kidney injury and IV fluids now improved. 5. Hypervolemia and lower extremity edema, maintained on Lasix. PLAN: Continue with current dose of Lasix. The patient was taking 20 mg p.o. daily at home. I will give him an additional IV dose today. MMODL / IJN: [id number] /
[2021-06-17 15:09] VITALS: BMI 26.6
[2021-06-17 17:11] LABS: Glucose,Whole Blood 134 mg/dL (75-99)
--- NOTE | 2021-06-17 19:18 | P.PN ---
Subjective Progress Note Date: 06/17/21 This patient is a 85-year-old male with past medical history of CVA, hypertension, diabetes, GERD, chronic kidney disease that presented to [facility] on 06/11/21 after a fall. Patient states he has skin cancer removal from his lip on 06/09/21, and 06/10/21. He states after he returned home, he felt dizzy and fell to the ground. He presented to the emergency department, patient was found to have acute kidney injury and was hypotensive, therefore he was admitted under the care of internal medicine with a consult placed to nephrology for acute kidney injury and cardiology was consulted for ventricular tachycardia. Orthopedics has been consulted for evaluation of bilateral knee pain and knee effusions. Since admission, patient has been febrile. He was found to have a UTI, and was treated with Rocehpin, urine culture was negative. Patient is seen and examined bedside this morning. He states he has experienced intermittent knee pain for many months. He states the left is usually worse, although his right knee is bothering him more today. He states his knees have been more painful after his fall. Patient has been febrile over the past few days. Patient states he does not feel febrile and currently feels well. He is eating well. He denies chest pain, shortness of breath, nausea, vomiting, chills. He denies back pain or hip pain. He has no complaints at this time. Vital signs stable, patient is currently afebrile. 06/17/21: Patient is seen and examined bedside. Patient's bilateral knee synovial fluid analysis is consistent with gout. Patient continue to experience pain in his knees, the right is worse than the left. He otherwise feels well. He is interested in bilateral cortisone injections prior to his discharge this afternoon. Vital signs stable. Objective - Vital Signs Vital signs: Vital Signs Temp 98.6 F 06/17/21 08:00 Pulse 87 06/17/21 08:00 Resp 17 06/17/21 08:00 BP 144/63 06/17/21 08:00 Pulse Ox 95 06/17/21 08:00 Intake & Output 06/17/21 06/17/21 06/18/21 06:59 18:59 06:59 Weight 77.111 kg Other: Voiding Method Urinal Urinal # Voids 4 - Exam On examination, patient is lying bed in no apparent distress. He is alert and orientated x3. On inspection of the right knee, there is a small knee effusion. There is no overlying erythema, warmth. No lacerations or abrasions of the knee. There is mild PROM of the knee. No pain with PROM of the right hip. Motor and sensory function intact right lower extremity. Right lower extremity is warm and well perfused. Calf is soft and non-tender. On inspection of the left knee, there is a small knee effusion. There is no overlying erythema, warmth. No lacerations or abrasions of the knee. No pain with palpation of the knee. There is mild PROM of the knee. No pain with PROM of the right hip. Motor and sensory function intact right lower extremity. Right lower extremity is warm and well perfused. Calf is soft and non-tender. - Labs CBC & Chem 7: 06/13/21 07:59 06/17/21 10:41 Labs: Abnormal Lab Results - Last 24 Hours (Table) 06/16/21 06/16/21 06/16/21 Range/Units 10:30 10:51 20:45 Sodium (137-145) mmol/L Carbon Dioxide (22-30) mmol/L BUN (9-20) mg/dL Creatinine (0.66-1.25) mg/dL Glucose (74-99) mg/dL POC Glucose (mg/dL) 138 H (75-99) mg/dL Synovial Crystals Seen A Seen A (None Seen) 06/17/21 06/17/21 06/17/21 Range/Units 06:56 10:41 16:53 Sodium 133 L (137-145) mmol/L Carbon Dioxide 19 L (22-30) mmol/L BUN 40 H (9-20) mg/dL Creatinine 1.55 H (0.66-1.25) mg/dL Glucose 113 H (74-99) mg/dL POC Glucose (mg/dL) 145 H 134 H (75-99) mg/dL Synovial Crystals (None Seen) Microbiology - Last 24 Hours (Table) 06/15/21 12:02 Blood Culture - Preliminary Blood No Growth after 48 hours 06/16/21 11:00 Gram Stain - Preliminary Knee - Right Body Fluid Culture - Preliminary 06/16/21 11:00 Gram Stain - Preliminary Knee - Left Body Fluid Culture - Preliminary Assessment and Plan Assessment: Bilateral knee pain Bilateral knee effusion Acute gout flare Plan: - Synovial fluid analysis from bilateral knees is consistent with gout. We discussed treatment options, and patient would like bilateral knee cortisone injections before discharge this afternoon. Internal medicine was notified, and cleared the patient for injections today. - Gout management per internal medicine. - Pain management as needed. - Medical management per internal medicine, cardiology, nephrology. Procedure: - Verbal consent for a right knee injection was obtained. The skin overlying the superior lateral pole of the patella was anesthetized with ethyl chloride spray. The skin was then prepped with ChloraPrep. A 22-gauge needle was used to inject 3mL of 2% lidocaine and 1mL of 40mg depo-medrol under sterile technique. The needle was removed and a bandage was applied. Patient tolerated this well. - Verbal consent for a left knee injection was obtained. The skin overlying the superior lateral pole of the patella was anesthetized with ethyl chloride spray. The skin was then prepped with ChloraPrep. A 22-gauge needle was used to inject 3mL of 2% lidocaine and 1mL of 40mg depo-medrol under sterile technique. The needle was removed and a bandage was applied. Patient tolerated this well.
--- NOTE | 2021-06-18 12:43 | ECHOF ---
Referral Reason:run of [employer] MEASUREMENTS -------- HEIGHT: 170.2 cm WEIGHT: 77.1 kg BP: 126/68 RVIDd: 3.5 cm (< 3.3) IVSd: 1.3 cm (0.6 - 1.1) LVIDd: 4.6 cm (3.9 - 5.3) LVPWd: 1.3 cm (0.6 - 1.1) IVSs: 1.8 cm LVIDs: 3.3 cm LVPWs: 2.0 cm LA Diam: 3.2 cm (2.7 - 3.8) Ao Diam: 3.2 cm (2.0 - 3.7) AV Cusp: 1.9 cm (1.5 - 2.6) MV EXCURSION: 9.718 mm (> 18.000) MV EF SLOPE: 64 mm/s (70 - 150) EPSS: 1.2 cm MV E James: 0.54 m/s MV DecT: 259 ms MV A James: 0.91 m/s MV E/A Ratio: 0.59 RAP: 5.00 mmHg RVSP: 65.18 mmHg TAPSE: 24.30 mm FINDINGS -------- Sinus rhythm. This was a technically adequate study. The left ventricular size is normal. There is mild concentric left ventricular hypertrophy. Overa ll left ventricular systolic function is normal with, an EF between 60 - 65 %. The right ventricle is mildly enlarged. The left atrium is normal in size. The right atrium is normal in size. Interatrial and interventricular septum intact. The aortic valve is trileaflet, and appears structurally normal. No aortic stenosis or regurgitation. The mitral valve is normal. Mild tricuspid regurgitation present. There is severe pulmonary hypertension. The right ventricul ar systolic pressure, as measured by Doppler, is 65.18mmHg. Trace/mild (physiologic) pulmonic regurgitation. The aortic root size is normal. Normal inferior vena cava with normal inspiratory collapse consistent with estimated right atrial pre ssure of 5 mmHg. There is no pericardial effusion. CONCLUSIONS -------- 1. The left ventricular size is normal. 2. There is mild concentric left ventricular hypertrophy. 3. Overall left ventricular systolic function is normal with, an EF between 60 - 65 %. 4. The right ventricle is mildly enlarged. 5. The aortic valve is trileaflet, and appears structurally normal. No aortic stenosis or regurgitati on. 6. Mild tricuspid regurgitation present. 7. There is severe pulmonary hypertension. 8. The right ventricular systolic pressure, as measured by Doppler, is 65.18mmHg. 9. Trace/mild (physiologic) pulmonic regurgitation. 10. There is no pericardial effusion. ENGINEERING MGR: Rohini Cordero RDCS
== END 2021-06-17 19:15 | DRG 683 ==
LOC: EC 09:46 → 4SSUR 15:30
PROVIDERS: ADMIT Family Medicine; ATTEND Family Medicine
DX: N17.9 Acute kidney failure, unspecified (principal); E87.2 Acidosis; I69.354 Hemiplegia and hemiparesis following cerebral infarction affecting left non-dominant side; I47.2 Ventricular tachycardia; J98.11 Atelectasis; Z20.822 Contact with and (suspected) exposure to COVID-19; G89.29 Other chronic pain; M54.5 Low back pain; E11.40 Type 2 diabetes mellitus with diabetic neuropathy, unspecified; E11.51 Type 2 diabetes mellitus with diabetic peripheral angiopathy without gangrene; E11.622 Type 2 diabetes mellitus with other skin ulcer; E86.0 Dehydration; E86.1 Hypovolemia; E87.70 Fluid overload, unspecified; F01.50 Vascular dementia, unspecified severity, without behavioral disturbance, psychotic disturbance, mood disturbance, and anxiety; M25.461 Effusion, right knee; M25.462 Effusion, left knee; I95.9 Hypotension, unspecified; M17.0 Bilateral primary osteoarthritis of knee; E11.22 Type 2 diabetes mellitus with diabetic chronic kidney disease; I12.9 Hypertensive chronic kidney disease with stage 1 through stage 4 chronic kidney disease, or unspecified chronic kidney disease; K21.9 Gastro-esophageal reflux disease without esophagitis; S51.812A Laceration without foreign body of left forearm, initial encounter; N40.0 Benign prostatic hyperplasia without lower urinary tract symptoms; N18.9 Chronic kidney disease, unspecified; M11.9 Crystal arthropathy, unspecified; M10.9 Gout, unspecified; I49.3 Ventricular premature depolarization; W22.8XXA Striking against or struck by other objects, initial encounter; W19.XXXA Unspecified fall, initial encounter; L98.491 Non-pressure chronic ulcer of skin of other sites limited to breakdown of skin; M54.2 Cervicalgia; Z87.891 Personal history of nicotine dependence; Z85.828 Personal history of other malignant neoplasm of skin; Z82.49 Family history of ischemic heart disease and other diseases of the circulatory system; Z79.899 Other long term (current) drug therapy
CPT/HCPCS: 36415; 70450; 70486; 71045; 71046; 72125; 76770; 80048; 80053; 81001; 83036; 83605; 83735; 84443; 84484; 85025; 85027; 85610; 85730; 87040; 87070; 87086; 87205; 87635; 89050; 89060; 93005; 93306; 93923; 96360; 99285